=== PATIENT | female | born 1950 | race Caucasian/White ===

== ENCOUNTER 2020-05-28 09:13 | Outpatient (REF) | payer MEDICARE, OTHER, SELFPAY ==
[2020-05-28 11:28] LABS: Hemoglobin 13.1 g/dl (12.0-16.0); Mean Corpuscular HGB Conc 32.8 g/dl (31.0-35.0); Mean Corpuscular Hemoglobin 30.6 pg (27.0-33.0); Mean Corpuscular Volume 93.5 fL (80-98); Mean Platelet Volume 10.5 fL (9.4-12.3); Platelet Count 236 X10*3/uL (160-400); Red Blood Count 4.28 X10*6/uL (4.20-5.50); Red Cell Distribution Width 12.7 % (11.0-16.0); White Blood Count 7.1 X10*3/uL (4.8-10.8)
[2020-05-28 11:50] LABS: Alanine Aminotransferase 19 U/L (0-31); Albumin Level 4.3 g/dL (3.5-5.0); Alkaline Phosphatase 76 U/L (39-117); Anion Gap 13 (12-20); Aspartate Amino Transferase 23 U/L (5-31); Bilirubin Total 0.7 mg/dL (0.0-1.0); Blood Urea Nitrogen 19 mg/dL (9-16); Calcium 8.9 mg/dL (8.4-10.2); Carbon Dioxide 28 mmol/L (22-29); Chloride 105 mmol/L (96-108); Cholesterol 188 mg/dL; Estimated Glomerular Filt Rate > 60; Glucose Fasting 85 mg/dL (60-99); HDL Cholesterol 57 mg/dL; LDL Cholesterol Calculated 104 mg/dl; Potassium 4.5 mmol/l (3.3-5.1); Sodium 141 mmol/L (135-145); Total Protein 6.5 g/dL (6.5-8.0); Triglycerides 139 mg/dL
[2020-05-28 12:13] LABS: Thyroid Stimulating Hormone 1.34 mIU/mL (0.32-4.0)
== END 2020-05-28 09:14 | disposition home or self-care (01) ==
LOC: HO.HMGCLDS 09:13
PROVIDERS: PCP Internal Medicine; Visit Provider Internal Medicine
DX: U07.1 COVID-19 (principal); R06.00 Dyspnea, unspecified; I10 Essential (primary) hypertension; E78.5 Hyperlipidemia, unspecified
CPT/HCPCS: 36415; 80053; 80061; 84443; 85027

== ENCOUNTER → 2020-06-10 09:07 | Outpatient (REF) | payer MEDICARE, OTHER, SELFPAY ==
--- NOTE | 2020-06-10 09:12 | CA_ITS ---
Transthoracic Echocardiogram Patient (Last, First, Middle): Yvrose Ortega C Gender: Female Date of : 1950 Age: 69 Procedure Date: 06/10/2020 Procedure Type: Transthoracic Echocardiogram Location: OP Height: 157.48 cm Weight: 70.76 kg BSA: 1.72 m2 Heart Rate: bpm BP: 162 / 94 mmHg Director Of Community Education: Nichole MD: Cristela Barros MD Symptoms: U07.1 - COVID-19 Study Quality: Good ECG Rhythm: Sinus Conclusions: - The left ventricular systolic function is normal. The visually estimated ejection fraction is between 65-70%. - LV global endocardial peak longitudinal strain -17% (normal). - E/E prime ratio is >15, consistent with elevated filling pressures. Evidence suggests grade I (mild) diastolic dysfunction. - There is mild calcification of the aortic valve. - No obvious valvular pathology seen on this study. Findings Left Ventricle Normal left ventricular cavity size. The left ventricular systolic function is normal. The visually estimated ejection fraction is between 65-70%. There is no evidence of regional wall motion abnormalities. E/E prime ratio is >15, consistent with elevated filling pressures. Evidence suggests grade I (mild) diastolic dysfunction. LV global endocardial peak longitudinal strain -17%. Right Ventricle Normal right ventricular cavity size and systolic function. Atria The left atrium is mildly dilated. The right atrium is normal in size. Aortic Valve There is a normal trileaflet aortic valve. There is mild calcification of the aortic valve. There is no aortic valve stenosis. Mitral Valve The mitral valve appears normal. There is trace mitral valve regurgitation. There is no mitral valve stenosis. Pulmonic Valve The pulmonic valve was not well visualized. Tricuspid Valve Normal tricuspid valve structure. There is trace tricuspid valve regurgitation. The pulmonary artery systolic pressure is normal. Great Vessels The aortic annulus, sinuses of valsalva, and asc aorta are normal in size. Venous The inferior vena cava is normal in size and collapses greater than 50% with inspiration. Pericardium/Pleural There is no evidence of pericardial effusion. Prior Study Comparison No prior study available for comparison. Recommendations, Care & Conclusions No obvious valvular pathology seen on this study. Measurements 2D Linear Measurements RVIDd: 2.79 RVIDd Index: 1.62 IVSd: 1.03 0.6-0.9/0.6-1.0 cm LVIDd: 4.40 3.9-5.3/4.2-5.9 cm LVIDd Index: 2.56 2.4-3.2/2.2-3.1 cm/m2 LVIDs: 3.12 2.0-3.6 cm LVPWd: 0.99 0.7-1.1 cm Ao Root: 2.80 2.1-3.5 cm LA Diam: 4.30 2.7-3.8/3.0-4.0 cm LAIDs Index: 2.50 1.5-2.3 cm/m2 LV Mass: 186.35 67-162/88-224 g LV Mass Index: 108.34 43-95/49-115 g/m2 LVOT Diam: 2.10 3.0+(-)1.3 cm 2D Systolic Function EF 4C: 73.20 >55% EF 2C: 69.60 >55% EF BiP: 70.20 >55% Mitral Valve MV Pk E: 0.96 MV PK A: 0.78 MV Decel Time: 262.00 E/A: 1.20 E'Lateral: 4.46 E'Medial: 5.11 E/E' Med: 18.80 E/E' Lat: 21.50 Aortic Valve AoV Pk Papi: 1.45 AoV Mn Papi: 1.10 AoV VTI: 0.35 AoV Pk Grad: 8.00 Aov Mn Grad: 5.00 NESTOR Cont.VTI: 3.20 LVOT LVOT Pk Papi: 1.32 LVOT Mn Papi: 0.94 LVOT VTI: 0.32 LVOT Pk Grad: 7.00 LVOT Mn Grad: 4.00 LVOT Diam: 2.10 LVOT Area: 3.46 Diastolic Function MV Pk E: 0.96 MV Pk A: 0.78 E/A: 1.20 E'Medial: 5.11 E/E' Med: 18.80 E' Laterial: 4.46 E/E' Lat: 21.50 Tricuspid Valve RA Press: 3.00 Great Vessels Aorta Ao Root-2D: 2.80 2.0-3.7 cm Ao Asc: 2.80 2.1-3.4 cm Ao Arch: 3.00 Updated in Other Vendor System with Status of Final Jonathon Joshua MD electronically signed on 06/11/2020 8:32:36 AM with status of Final
== END ==
LOC: HO.CARD 09:07
PROVIDERS: PCP Internal Medicine; Visit Provider Internal Medicine
DX: E78.5 Hyperlipidemia, unspecified (principal); I10 Essential (primary) hypertension; R06.00 Dyspnea, unspecified
CPT/HCPCS: 93306; 93356

== ENCOUNTER 2021-07-17 11:15 | Outpatient (REF) | payer MEDICARE, OTHER, SELFPAY | END 2021-07-17 11:16 | disposition home or self-care (01) | LOC: HO.HMGCLDS 11:15 | PROVIDERS: Visit Provider Internal Medicine | DX: Z20.822 Contact with and (suspected) exposure to COVID-19 (principal) | CPT/HCPCS: C9803; U0003; U0005 ==

== ENCOUNTER 2021-10-30 09:21 | Outpatient (REF) | payer MEDICARE, OTHER, SELFPAY ==
[2021-10-30 11:31] LABS: Appearance Urine TURBID; Color Urine YELLOW; Glucose Urine UA NEG (NEG); Hematocrit 41.6 % (37.0-47.0); Hemoglobin 13.6 g/dl (12.0-16.0); Leukocyte Esterase Urine NEG (NEG); Mean Corpuscular HGB Conc 32.7 g/dl (31.0-35.0); Mean Corpuscular Hemoglobin 30.3 pg (27.0-33.0); Mean Corpuscular Volume 92.7 fL (80.0-98.0); Mean Platelet Volume 10.2 fL (9.4-12.3); Nitrite Urine NEG (NEG); Platelet Count 269 X10*3/uL (160-400); Red Blood Count 4.49 X10*6/uL (4.20-5.50); Red Cell Distribution Width 12.3 % (11.0-16.0); Specific Gravity - Urine >= 1.030 (1.005-1.025); Urine Blood NEG (NEG); Urine Ketones NEG (NEG); Urine Protein NEG (NEG-TRACE); White Blood Count 6.5 X10*3/uL (4.8-10.8)
[2021-10-30 12:07] LABS: Amorphous Sediment Urine 4+ /LPF
[2021-10-30 12:08] LABS: Mucus Urine 1+ /LPF; Squamous Epithelial Cell Urine TRACE /LPF
[2021-10-30 12:09] LABS: RBC Urine 0 /HPF (0); WBC Urine 0-2 /HPF (0-4)
[2021-10-30 12:13] LABS: TSH reflex Free T4 0.78 uIU/mL (0.32-4.0); Vitamin D 25-OH Total 38.7 ng/mL (>30)
[2021-10-30 12:23] LABS: Alanine Aminotransferase 23 U/L (0-31); Albumin Level 4.4 g/dL (3.5-5.0); Alkaline Phosphatase 72 U/L (39-117); Anion Gap 12 (12-20); Aspartate Amino Transferase 25 U/L (5-31); Bilirubin Total 0.8 mg/dL (0.0-1.0); Blood Urea Nitrogen 15 mg/dL (9-16); Calcium 9.2 mg/dL (8.4-10.2); Carbon Dioxide 26 mmol/L (22-29); Chloride 106 mmol/L (96-108); Cholesterol 208 mg/dL; Estimated Glomerular Filt Rate > 60; Glucose Fasting 98 mg/dL (60-99); HDL Cholesterol 54 mg/dL; LDL Cholesterol Calculated 127 mg/dl; Potassium 4.3 mmol/L (3.3-5.1); Sodium 140 mmol/L (135-145); Triglycerides 137 mg/dL
== END 2021-10-30 09:22 | disposition home or self-care (01) ==
LOC: HO.HMGCLDS 09:21
PROVIDERS: PCP Internal Medicine; Visit Provider Internal Medicine
DX: R00.1 Bradycardia, unspecified (principal)
CPT/HCPCS: 36415; 80053; 80061; 81001; 82306; 84443; 85027

== ENCOUNTER 2022-11-18 12:26 | Outpatient (REF) | payer MEDICARE, OTHER, SELFPAY ==
[2022-11-18 13:53] LABS: MANUAL DIFF FLAG NO
[2022-11-18 14:05] LABS: Basophils Percent Auto 0.4 % (0-2); Eosinophils Absolute Auto 0.1 X10*3/uL (0.0-0.4); Eosinophils Percent Auto 0.8 % (0-4); Hematocrit 39.6 % (37.0-47.0); Hemoglobin 13.1 g/dl (12.0-16.0); Imm Gran Abs Auto 0.02 X10*3/uL (0.00-0.03); Imm Gran Pct Auto 0.3 % (0.0-0.4); Lymphocytes Absolute Auto 3.2 X10*3/uL (1.2-4.9); Lymphocytes Percent Auto 41.2 % (20-40); Mean Corpuscular HGB Conc 33.1 g/dl (31.0-35.0); Mean Corpuscular Volume 90.8 fL (80.0-98.0); Mean Platelet Volume 10.1 fL (9.4-12.3); Monocytes Absolute Auto 0.6 X10*3/uL (0.1-1.2); Monocytes Percent Auto 7.5 % (2-11); Neutrophils Absolute Auto 3.9 x10*3/uL (2.0-8.3); Neutrophils Percent Auto 49.8 % (45-73); Platelet Count 262 X10*3/uL (160-400); Red Blood Count 4.36 X10*6/uL (4.20-5.50); White Blood Count 7.8 X10*3/uL (4.8-10.8)
[2022-11-18 14:24] LABS: Alanine Aminotransferase 15 U/L (0-31); Albumin Level 4.4 g/dL (3.5-5.0); Alkaline Phosphatase 70 U/L (39-117); Anion Gap 12 (12-20); Aspartate Amino Transferase 19 U/L (5-31); Bilirubin Total 0.7 mg/dL (0.0-1.0); Blood Urea Nitrogen 15 mg/dL (9-16); Calcium 9.1 mg/dL (8.4-10.2); Carbon Dioxide 25 mmol/L (22-29); Chloride 106 mmol/L (96-108); Cholesterol 208 mg/dL; Estimated Glomerular Filt Rate > 60; Glucose Fasting 91 mg/dL (60-99); HDL Cholesterol 67 mg/dL; LDL Cholesterol Calculated 121 mg/dl; Potassium 4.3 mmol/L (3.3-5.1); Sodium 139 mmol/L (135-145); Total Protein 6.6 g/dL (6.5-8.0); Triglycerides 103 mg/dL
[2022-11-18 14:43] LABS: TSH reflex Free T4 0.79 uIU/mL (0.32-4.0); Vitamin D 25-OH Total 51.2 ng/mL (>30)
== END 2022-11-18 12:27 | disposition home or self-care (01) ==
LOC: HO.HMGCLDS 12:26
PROVIDERS: PCP Internal Medicine; Visit Provider Internal Medicine
DX: I10 Essential (primary) hypertension (principal); E78.5 Hyperlipidemia, unspecified; E55.9 Vitamin D deficiency, unspecified
CPT/HCPCS: 36415; 80053; 80061; 82306; 84443; 85025

== ENCOUNTER 2023-05-18 09:58 | Outpatient (AMB) | payer MEDICARE, OTHER, SELFPAY ==
[2023-05-18 10:02] VITALS: BP 120/74; PULSE 51; O2SAT 98; BMI 26.5
--- NOTE | 2023-05-18 10:02 | MHC.PC.OV ---
Vital Signs 05/18/23 10:02 Height 5 ft 2 in Weight 145 lb BMI 26.5 BP 120/74 Blood Pressure Location Lt brachial Position Sitting Pulse 51 Pulse Source Pulse Oximeter Pulse Oximetry (%) 98 Oxygen Delivery Method Room Air Intake Visit Reasons: 6 month follow up HLD Intake Note: Pt is here today for 6 months follow up visit. Allergies lisinopril Adverse Reaction (Intermediate, Verified 05/18/23 10:08) cough, hair falling out SEASONAL ALLERGIES Allergy (Unknown, Uncoded 05/18/23 10:08) SNEEZING, RUNNY EYES Medication List - Last Reconciled 05/18/23 by Cristela Barros MD amlodipine 5 mg PO DAILY amoxicillin 2,000 mg (4 x 500 mg) PO ONCE atenolol 25 mg PO DAILY calcium carbonate-vitamin D3 600 mg-12.5 mcg (500 unit) (Calcium 600 with Vitamin D3) caps PO denosumab (Prolia) 60 mg subcut [id number] esomeprazole magnesium (Nexium) 40 mg PO DAILY flu vac 2020 [id number](PF) 60 mcg (15 mcg x 4)/0.5 mL mL IM ONCE fluoxetine 20 mg PO DAILY olmesartan 20 mg PO DAILY simvastatin 20 mg PO DAILY Tobacco use date assessed: 05/18/23 Dental Screening Dental Screen Date: 05/18/23 Did you have a dental visit in the last 12 months?: Yes Did you have a dental problem in the last 6 months where you did not have access to dental care?: No Was dental information given to patient?: Patient has dentist HPI 6 month follow up HLD HPI Details PATIENT PRESENTS FOR THE FOLLOW-UP ON HYPERTENSION HYPERLIPIDEMIA STABLE ON CURRENT MEDICATIONS. She is grieving her who suddenly 8 months ago and patient is considering grieving counseling. She denies depression. [facility] Medical History (Updated 05/18/23 @ 10:48 by Cristela Barros MD) Bunion of great toe Bradycardia Trigeminal neuralgia Annual physical exam WEEKS (dyspnea on exertion) Normal Pap smear Mammogram normal Normal colonoscopy COVID-19 GERD (gastroesophageal reflux disease) HTN (hypertension) HLD (hyperlipidemia) Hiatal hernia Surgical History History of knee replacement Family History Father Heart attack Mother Dementia Social History Housing: House Patient Tobacco Use Status: Former Tobacco user (25 years ago) e-Cigarette/Vaping Use: Never Used Current occupational status: employed Cognitive needs: No Hearing needs: No Vision needs: Yes Questionnaire Thrive Questionnaire Date Thrive assessed: 11/18/22 TEGAN-7 AMB Questionnaire TEGAN-7 Date TEGAN - 7 assessed: 11/18/22 Source: Developed by Drs. Masoud Uribe, Rosa Ellis, Ezio Jewell and colleagues, with an educational lisa from [employer]. Review of Systems Const All systems reviewed & are unremarkable except as noted in HPI and below Reports no additional complaints Eyes Reports no additional complaints ENT Reports no additional complaints Card Reports no additional complaints Resp Reports no additional complaints GI Reports no additional complaints Reports no additional complaints Physical exam (Primary Care) Vital Signs: Last Vital Signs Pulse 51 05/18/23 10:02 BP 120/74 05/18/23 10:02 Pulse Ox 98 05/18/23 10:02 Oxygen Delivery Method Room Air 05/18/23 10:02 BMI result Body Mass Index 26.5 Tobacco/Smoking Status: Tobacco use Status Tobacco use date assessed 05/18/23 05/18/23 10:11 Patient Tobacco Use Status Former Tobacco user (05/18/23 10:02 years ago) e-Cigarette/Vaping Use Never Used 05/18/23 10:02 Thrive Assessment: Date of Thrive Assessment Date Thrive assessed 11/18/22 05/18/23 10:02 Const General: no acute distress HENMT Face and sinus: Yes normal facial exam Eyes General: appearance normal, both eyes and all related structures Neck Neck: Yes supple Resp Effort & Inspection: normal respiratory effort Auscultation: clear to auscultation bilaterally Cardio Rhythm: regular rhythm Heart sounds: S1 normal heart sound present and S2 normal heart sound present Assessment and Plan Assessment & Plan (1) HTN (hypertension): Code(s): I10 - Essential (primary) hypertension Plan: Continue medications (2) HLD (hyperlipidemia): Code(s): E78.5 - Hyperlipidemia, unspecified Plan: Continue statins, check lipid profile today, follow-up in 6 months with a fasting labs before (3) Osteoporosis: Comment: on Prolia since 2020 by fern cutter Code(s): M81.0 - Age-related osteoporosis without current pathological fracture (4) Grief: Code(s): F43.21 - Adjustment disorder with depressed mood Plan: Patient will schedule counseling Orders: Orders Lipid Panel Today E78.5 - Hyperlipidemia, unspecified, I10 - Essential (primary) hypertension Comprehensive [place]. Panel Fast 6 Months E78.5 - Hyperlipidemia, unspecified, I10 - Essential (primary) hypertension Vitamin D 25-OH (D2 and D3) 6 Months E78.5 - Hyperlipidemia, unspecified, I10 - Essential (primary) hypertension Comprehensive [place]. Panel Fast Today E78.5 - Hyperlipidemia, unspecified, I10 - Essential (primary) hypertension Lipid Panel 6 Months E78.5 - Hyperlipidemia, unspecified, I10 - Essential (primary) hypertension Complete Blood Count Auto Diff 6 Months E78.5 - Hyperlipidemia, unspecified, I10 - Essential (primary) hypertension Coding Level of Care Code Est Pt Level 4 (26901) Diagnoses HTN (hypertension) I10 HLD (hyperlipidemia) E78.5 Osteoporosis M81.0 Grief F43.21
== END 2023-05-18 10:49 | disposition home or self-care (01) ==
PROVIDERS: Visit Provider Internal Medicine
DX: I10 Essential (primary) hypertension (principal); E78.5 Hyperlipidemia, unspecified; M81.0 Age-related osteoporosis without current pathological fracture; F43.21 Adjustment disorder with depressed mood
CPT/HCPCS: 99214

== ENCOUNTER 2023-05-18 10:43 | Outpatient (REF) | payer MEDICARE, OTHER, SELFPAY | END 2023-05-18 10:44 | disposition home or self-care (01) | LOC: HO.HMGCLDS 10:43 | PROVIDERS: PCP Internal Medicine; Visit Provider Internal Medicine | DX: I10 Essential (primary) hypertension (principal); E78.5 Hyperlipidemia, unspecified | CPT/HCPCS: 36415; 80053; 80061 ==

== ENCOUNTER 2023-11-21 08:04 | Outpatient (REF) | payer MEDICARE, OTHER, SELFPAY ==
[2023-11-21 10:32] LABS: MANUAL DIFF FLAG NO
[2023-11-21 10:38] LABS: Basophils Percent Auto 0.3 % (0-2); Eosinophils Absolute Auto 0.1 X10*3/uL (0.0-0.4); Eosinophils Percent Auto 1.7 % (0-4); Hematocrit 39.4 % (37.0-47.0); Imm Gran Abs Auto 0.01 X10*3/uL (0.00-0.03); Imm Gran Pct Auto 0.2 % (0.0-0.4); Lymphocytes Absolute Auto 2.4 X10*3/uL (1.2-4.9); Mean Corpuscular Hemoglobin 30.7 pg (27.0-33.0); Mean Corpuscular Volume 93.1 fL (80.0-98.0); Mean Platelet Volume 10.4 fL (9.4-12.3); Monocytes Absolute Auto 0.3 X10*3/uL (0.1-1.2); Monocytes Percent Auto 5.3 % (2-11); Neutrophils Percent Auto 51.5 % (45-73); Platelet Count 230 X10*3/uL (160-400); Red Blood Count 4.23 X10*6/uL (4.20-5.50); Red Cell Distribution Width 13.1 % (11.0-16.0); White Blood Count 5.9 X10*3/uL (4.8-10.8)
[2023-11-21 10:55] LABS: Alanine Aminotransferase 17 U/L (0-31); Albumin Level 4.1 g/dL (3.5-5.0); Alkaline Phosphatase 61 U/L (39-117); Anion Gap 10 (12-20); Aspartate Amino Transferase 22 U/L (5-31); Bilirubin Total 0.6 mg/dL (0.0-1.0); Blood Urea Nitrogen 15 mg/dL (9-16); Calcium 8.7 mg/dL (8.4-10.2); Carbon Dioxide 26 mmol/L (22-29); Chloride 105 mmol/L (96-108); Cholesterol 192 mg/dL (<200); Estimated Glomerular Filt Rate > 60; Glucose Fasting 100 mg/dL (60-99); HDL Cholesterol 67 mg/dL (>40); LDL Cholesterol Calculated 104 mg/dL (<100); Sodium 137 mmol/L (135-145); Total Protein 6.9 g/dL (6.5-8.0); Triglycerides 105 mg/dL (<150)
[2023-11-24 14:08] LABS: Vitamin D 25-OH, D2 <4 ng/mL; Vitamin D 25-OH, D3 35 ng/mL; Vitamin D 25-OH, Total 35 ng/mL (30-100)
== END 2023-11-21 08:05 | disposition home or self-care (01) ==
LOC: HO.HMGCLDS 08:04
PROVIDERS: PCP Internal Medicine; Visit Provider Internal Medicine
DX: I10 Essential (primary) hypertension (principal); E78.5 Hyperlipidemia, unspecified
CPT/HCPCS: 36415; 80053; 80061; 82306; 85025

== ENCOUNTER 2023-11-23 09:59 | Outpatient (AMB) | payer MEDICARE, OTHER, SELFPAY ==
[2023-11-23 10:24] VITALS: BP 104/66; PULSE 55; O2SAT 97; BMI 26.9
--- NOTE | 2023-11-23 10:24 | A.OFFPC_ITS ---
Vital Signs 11/23/23 10:24 Height 5 ft 2 in Weight 147 lb BMI 26.9 BP 104/66 Blood Pressure Location Lt brachial Position Sitting Pulse 55 Pulse Source Pulse Oximeter Pulse Oximetry (%) 97 Oxygen Delivery Method Room Air Intake Visit Reasons: Adult Annual exam Intake Note: Pt is here today for PE. Allergies lisinopril Adverse Reaction (Intermediate, Verified 11/23/23 10:26) cough, hair falling out SEASONAL ALLERGIES Allergy (Unknown, Uncoded 11/23/23 10:26) SNEEZING, RUNNY EYES Tobacco use date assessed: 11/23/23 Fall risk assessment: 1 Fall in past year Last assessed Fall Risk: 11/23/23 Dental Screening Dental Screen Date: 11/23/23 Did you have a dental visit in the last 12 months?: Yes Did you have a dental problem in the last 6 months where you did not have access to dental care?: No Was dental information given to patient?: Patient has dentist HPI Adult Annual exam HPI Details Pt presents for PE. Pt is grieving her who a year and half. Patient denies depression. She is going on a trip to [place] next week. [facility] Medical History (Updated 11/23/23 @ 11:01 by Cristela Barros MD) Bunion of great toe Bradycardia Trigeminal neuralgia Annual physical exam WEEKS (dyspnea on exertion) Normal Pap smear Mammogram normal Normal colonoscopy COVID-19 GERD (gastroesophageal reflux disease) HTN (hypertension) HLD (hyperlipidemia) Hiatal hernia Surgical History S/P Mohs surgery for basal cell carcinoma History of knee replacement Family History Father Heart attack Mother Dementia Social History Housing: House Patient Tobacco Use Status: Former Tobacco user (25 years ago) e-Cigarette/Vaping Use: Never Used service: No Current occupational status: employed Cognitive needs: No Hearing needs: No Vision needs: Yes Questionnaire Thrive Questionnaire Date Thrive assessed: 11/18/22 AUDIT C Alcohol Use Questionnaire (AUDIT-C) 1. How often do you have a drink containing alcohol?: 2-3 times a week 2. How many drinks containing alcohol do you have on a typical day when you are drinking?: 1 or 2 3. How often do you have six or more drinks on one occasion?: Never Total Score: 3 TEGAN-7 AMB Questionnaire TEGAN-7 Date TEGAN - 7 assessed: 11/18/22 Source: Developed by Drs. Masoud Uribe, Rosa Ellis, Ezio Jewell and colleagues, with an educational lisa from [employer]. Review of Systems Const All systems reviewed & are unremarkable except as noted in HPI and below Reports no additional complaints Eyes Reports no additional complaints ENT Reports no additional complaints Card Reports no additional complaints Resp Reports no additional complaints GI Reports no additional complaints Reports no additional complaints Physical exam (Primary Care) Vital Signs: Last Vital Signs Pulse 55 11/23/23 10:24 BP 104/66 11/23/23 10:24 Pulse Ox 97 11/23/23 10:24 Oxygen Delivery Method Room Air 11/23/23 10:24 BMI result Body Mass Index 26.9 Tobacco/Smoking Status: Tobacco use Status Tobacco use date assessed 11/23/23 11/23/23 10:28 Patient Tobacco Use Status Former Tobacco user (25 11/23/23 10:28 years ago) e-Cigarette/Vaping Use Never Used 11/23/23 10:28 Thrive Assessment: Date of Thrive Assessment Date Thrive assessed 11/18/22 11/23/23 10:28 Const General: no acute distress HENMT Head: Yes normal to inspection Ears: hearing grossly normal bilaterally Mouth: Normal oral and palatal mucosa present Teeth and gingiva: dentition normal Eyes General: appearance normal, both eyes and all related structures Neck Neck: Yes no lymphadenopathy and Yes supple Resp Effort & Inspection: normal respiratory effort Auscultation: clear to auscultation bilaterally Cardio Rhythm: regular rhythm Heart sounds: S1 normal heart sound present and S2 normal heart sound present GI Inspection: Yes normal to inspection Palpation (GI): Soft to palpation Percussion: Yes normal to percussion Auscultation: normal bowel sounds Assessment and Plan Assessment & Plan (1) Osteoporosis: Comment: on Prolia since 2020 by curtains and draperies salesperson, DEXA by FARM MACHINERY MECHANIC 2022 Code(s): M81.0 - Age-related osteoporosis without current pathological fracture Plan: Continue vitamin-D regular exercise and follow-up with curtains and draperies salesperson for osteoporosis treatment (2) Normal colonoscopy: Comment: 2015 normal, Dr. Chaves (3) Annual physical exam: Code(s): Z00.00 - Encounter for general adult medical examination without abnormal findings Plan: Well-balanced diet regular exercise discussed with the patient, she is up-to-date with colonoscopy and mammogram (4) HTN (hypertension): Code(s): I10 - Essential (primary) hypertension Plan: Continue current medications Orders: Orders UA w Microscopic Today I10 - Essential (primary) hypertension, Z00.00 - Encounter for general adult medical examination without abnormal findings Coding Level of Care Code Est Pt Prev Care >65y(80472) Diagnoses Osteoporosis M81.0 Normal colonoscopy Annual physical exam Z00.00 HTN (hypertension) I10
== END 2023-11-23 11:13 | disposition home or self-care (01) ==
PROVIDERS: Visit Provider Internal Medicine
DX: Z00.00 Encounter for general adult medical examination without abnormal findings (principal); M81.0 Age-related osteoporosis without current pathological fracture; I10 Essential (primary) hypertension
CPT/HCPCS: 99397

== ENCOUNTER 2023-11-23 11:13 | Outpatient (REF) | payer MEDICARE, OTHER, SELFPAY ==
[2023-11-23 13:33] LABS: Appearance Urine Clear; Color Urine Yellow; Glucose Urine UA Negative (Negative); Leukocyte Esterase Urine Negative (Negative); Nitrite Urine Negative (Negative); PH 5.5 (5.0-9.0); Specific Gravity - Urine 1.025 (1.005-1.025); Urine Blood Negative (Negative); Urine Ketones Negative (Negative); Urine Protein Negative (Neg-Trace)
[2023-11-23 13:44] LABS: Bacteria Urine None Seen (None Seen); Hyaline Casts Urine 0-2 /LPF (0-2); RBC Urine 0-2 /HPF (0-2); Squamous Epithelial Cell Urine 0-2 /HPF (0-2); WBC Urine 0-5 /HPF (0-5)
== END 2023-11-23 11:14 | disposition home or self-care (01) ==
LOC: HO.HMGCLDS 11:13
PROVIDERS: PCP Internal Medicine; Visit Provider Internal Medicine
DX: Z00.00 Encounter for general adult medical examination without abnormal findings (principal); I10 Essential (primary) hypertension
CPT/HCPCS: 81001

== ENCOUNTER 2024-01-30 09:56 | Outpatient (AMB) | payer MEDICARE, OTHER, SELFPAY ==
[2024-01-30 09:58] VITALS: BP 130/80; PULSE 62; TEMP 36.7; O2SAT 96; BMI 27.0
--- NOTE | 2024-01-30 09:58 | AM.OFFWIN_ITS ---
Intake Vital Signs 3 01/30/24 09:58 Height 5 ft 2 in Weight 147 lb 8 oz BMI 27.0 BP 130/80 Blood Pressure Location Lt brachial Position Sitting Pulse 62 Pulse Source Pulse Oximeter Temp 98.1 F Temp Source Temporal Artery Scan Pulse Oximetry (%) 96 Oxygen Delivery Method Room Air Intake Visit Reasons: est/ left leg bite possible infection? Intake Note: Pt presents to the office today for c/o left leg bite with questioning possible infection. Pt states she noticed the bug bite Tuesday01/23/24. She states she has been putting hydrogen peroxide and neosporin but states now it is becoming painful and red. Patient Tobacco Use Status: Former Tobacco user (25 years ago) Allergies lisinopril Adverse Reaction (Intermediate, Verified 01/30/24 10:21) cough, hair falling out SEASONAL ALLERGIES Allergy (Unknown, Uncoded 01/30/24 10:03) SNEEZING, RUNNY EYES Medication List - Last Reconciled 01/30/24 by Cat Guzman, DESKIDDING MACHINE OPERATOR- amlodipine 5 mg PO DAILY amoxicillin 2,000 mg (4 x 500 mg) PO ONCE atenolol 25 mg PO DAILY calcium carbonate-vitamin D3 600 mg-12.5 mcg (500 unit) (Calcium 600 with Vitamin D3) caps PO denosumab (Prolia) 60 mg subcut [id number] esomeprazole magnesium (Nexium) 40 mg PO DAILY fluoxetine 20 mg PO DAILY olmesartan 20 mg PO DAILY simvastatin 20 mg PO DAILY HPI HPI Comments 2 History of Present Illness0 Details insect bite LLE occurred 1 week ago this happened while cleaning a camper did not see the insect or remove any insect - thinks it was a spider? area was itchy initially but this is now improved s/p applying TAB and h202 w/o relief Now red and swollen adn hot to touch Tdap overdue willing to get today PFSH Medical History Bunion of great toe Bradycardia Trigeminal neuralgia Annual physical exam WEEKS (dyspnea on exertion) Normal Pap smear Mammogram normal Normal colonoscopy COVID-19 GERD (gastroesophageal reflux disease) HTN (hypertension) HLD (hyperlipidemia) Hiatal hernia Surgical History S/P Mohs surgery for basal cell carcinoma History of knee replacement Family History Father Heart attack Mother Dementia Social History Housing: House Patient Tobacco Use Status: Former Tobacco user (25 years ago) e-Cigarette/Vaping Use: Never Used service: No Current occupational status: employed Cognitive needs: No Hearing needs: No Vision needs: Yes Review of Systems Const All systems reviewed & are unremarkable except as noted in HPI and below Physical Exam Vital Signs: Last Vital Signs Temp 98.1 F 01/30/24 09:58 Pulse 62 01/30/24 09:58 BP 130/80 01/30/24 09:58 Pulse Ox 96 01/30/24 09:58 Oxygen Delivery Method Room Air 01/30/24 09:58 BMI result Body Mass Index 27.0 Extrem Upper/lower leg/hip images: 2 1. LLE erythematous plaque with scabbed center, warm to touch periskin with localized edema. no drainage Assessment & Plan Assessment & Plan (1) Insect bite of left lower extremity: Code(s): S80.862A - Insect bite (nonvenomous), left lower leg, initial encounter; W57.XXXA - Bitten or stung by nonvenomous insect and other nonvenomous arthropods, initial encounter Qualifiers: Encounter type: initial encounter Qualified Code(s): S80.862A - Insect bite (nonvenomous), left lower leg, initial encounter; W57.XXXA - Bitten or stung by nonvenomous insect and other nonvenomous arthropods, initial encounter Plan: . (2) Cellulitis: Code(s): L03.90 - Cellulitis, unspecified Qualifiers: Laterality: left Site of cellulitis: extremity Site of cellulitis of extremity: lower extremity Qualified Code(s): L03.116 - Cellulitis of left lower limb Plan . Orders: Orders 2 TDaP Immunization Today Z23 - Encounter for immunization Medications: New 2 amoxicillin 500 mg PO BID 14 caps 0RF Patient Instructions: Apply hydrocort twice per day until better Use daily antihistamine (zyrtec) daily until resolved Take AB as directed tdap today If you develop fever, chills, worsening sx please return for re-eval. Coding Level of Care Code Est Pt Level 4 (55403) Diagnoses Insect bite of left lower extremity, initial encounter S80.862A; W57.XXXA Encounter type: initial encounter Cellulitis of left lower extremity L03.116 Laterality: left Site of cellulitis: extremity Site of cellulitis of extremity: lower extremity
== END 2024-01-30 10:37 | disposition home or self-care (01) ==
PROVIDERS: PCP Internal Medicine; Visit Provider Nurse Practitioner Family
DX: S80.862A Insect bite (nonvenomous), left lower leg, initial encounter (principal); W57.XXXA Bitten or stung by nonvenomous insect and other nonvenomous arthropods, initial encounter; L03.116 Cellulitis of left lower limb; Z23 Encounter for immunization
CPT/HCPCS: 90471; 90715; 99214

== ENCOUNTER 2024-07-16 14:02 | Outpatient (AMB) | payer MEDICARE, OTHER, SELFPAY ==
--- NOTE | 2024-07-16 14:23 | A.OFFPC_ITS ---
Vital Signs 07/16/24 14:26 Height 5 ft 2 in Weight 150 lb BMI 27.4 BP 108/66 Blood Pressure Location Rt brachial Position Sitting Pulse 68 Pulse Source Pulse Oximeter Pulse Oximetry (%) 96 Oxygen Delivery Method Room Air Intake Visit Reasons: [facility] [place] chest pain Intake Note: Pt is here today for ER follow up visit. Allergies lisinopril Adverse Reaction (Intermediate, Verified 07/16/24 14:28) cough, hair falling out SEASONAL ALLERGIES Allergy (Unknown, Uncoded 07/16/24 14:28) SNEEZING, RUNNY EYES Medication List - Last Reconciled 07/16/24 by Cristela Barros MD amlodipine 5 mg PO DAILY amoxicillin 2,000 mg (4 x 500 mg) PO ONCE amoxicillin 500 mg PO BID atenolol 25 mg PO DAILY calcium carbonate-vitamin D3 600 mg-12.5 mcg (500 unit) (Calcium with Vit D3) caps PO denosumab (Prolia) 60 mg subcut [id number] esomeprazole magnesium (Nexium) 40 mg PO DAILY fluoxetine 20 mg PO DAILY olmesartan 20 mg PO DAILY simvastatin 20 mg PO DAILY Tobacco use date assessed: 07/16/24 Dental Screening Dental Screen Date: 11/23/23 HPI [facility] [place] chest pain HPI Details Patient presents for the follow-up of ER visit for episode of chest pressure with left arm numbness and tingling sensation lasting for few minutes. Cardiac workup was negative. Patient reports recurrent episodes lasting for few minutes not related to physical activity usually at rest but also occasionally at night. He denies dysphagia odynophagia heartburn. Patient has been taking Nexium regularly. Hypertension hyperlipidemia controlled on current medications [facility] Medical History Bunion of great toe Bradycardia Trigeminal neuralgia Annual physical exam WEEKS (dyspnea on exertion) Normal Pap smear Mammogram normal Normal colonoscopy COVID-19 GERD (gastroesophageal reflux disease) HTN (hypertension) HLD (hyperlipidemia) Hiatal hernia Surgical History S/P Mohs surgery for basal cell carcinoma History of knee replacement Family History Father Heart attack Mother Dementia Social History Housing: House Patient Tobacco Use Status: Former Tobacco user (25 years ago) e-Cigarette/Vaping Use: Never Used service: No Current occupational status: employed Cognitive needs: No Hearing needs: No Vision needs: Yes Questionnaire PHQ-9 Over the last 2 weeks, how often have you been bothered by any of the following problems? 1. Little interest or pleasure in doing things: nearly every day 2. Feeling down, depressed, or hopeless: several days 3. Trouble falling or staying asleep, or sleeping too much: not at all 4. Feeling tired or having little energy: not at all 5. Poor appetite or overeating: several days 6. Feeling bad about yourself - or that you are a failure or have let yourself or your family down: not at all 7. Trouble concentrating on things, such as reading the newspaper or watching television: several days 8. Moving or speaking so slowly that other people could have noticed. Or the opposite - being so fidgety or restless that you have been moving around a lot more than usual: not at all 9. Thoughts that you would be better off or of hurting yourself in some way: not at all Total score: 6 Depression Screening Interpretation: Negative Depression Screening Done: Yes 99118 - PHQ-9 Billing: Yes Source: Developed by Drs. Masoud Uribe, Rosa Ellis, Ezio Jewell and colleagues, with an educational lisa from [employer]. Thrive Questionnaire Date Thrive assessed: 07/16/24 I am a: Patient What is your living situation today?: I have a steady place to live Within the past 12 months, did the food you bought not last and you didn't have the money to get more?: Never true Within the past 12 months, did you worry whether your food would run out before you got money to buy more?: Never true Do you have trouble paying for medicines?: No Do you have trouble getting transportation to medical appointments?: No Do you have trouble paying your heating and electricity bill?: No Do you have trouble taking care of your child, family member or friend?: No Do you have trouble with day-to-day activities such as bathing, preparing meals, shopping, managing finances, etc.?: No Are you currently unemployed and looking for a job?: No Are you interested in more education?: No Please select the resources that you would like help with: None THRIVE Score: 0 AUDIT C Alcohol Use Questionnaire (AUDIT-C) 2. How many drinks containing alcohol do you have on a typical day when you are drinking?: 1 or 2 3. How often do you have six or more drinks on one occasion?: Never Total Score: 0 TEGAN-7 AMB Questionnaire TEGAN-7 Date TEGAN - 7 assessed: 07/16/24 Feeling nervous, anxious, or on edge: 0 = Not at all Not being able to stop or control worryin = Not at all Worrying too much about different things: 0 = Not at all Trouble relaxin = Not at all Being so restless that it is hard to sit still: 0 = Not at all Becoming easily annoyed or irritable: 0 = Not at all Feeling afraid as if something awful might happen: 0 = Not at all Total TEGAN-7 score (0-4 normal; 5-9 mild; 10-14 moderate; 15-21 severe): 0 Source: Developed by Drs. Masoud Uribe, Rosa Ellis, Ezio Jewell and colleagues, with an educational lisa from [employer]. TEGAN-7 Assessment Billing TEGAN-7 Assessment Tool: TEGAN-7 Assessment 22048 Review of Systems Const All systems reviewed & are unremarkable except as noted in HPI and below Card Reports no additional complaints Resp Reports no additional complaints GI Reports no additional complaints Reports no additional complaints Physical exam (Primary Care) Vital Signs: Last Vital Signs Pulse 68 07/16/24 14:26 BP 108/66 07/16/24 14:26 Pulse Ox 96 07/16/24 14:26 Oxygen Delivery Method Room Air 07/16/24 14:26 BMI result Body Mass Index 27.4 Tobacco/Smoking Status: Tobacco use Status Tobacco use date assessed 07/16/24 07/16/24 14:30 Patient Tobacco Use Status Former Tobacco user (25 07/16/24 14:23 years ago) e-Cigarette/Vaping Use Never Used 07/16/24 14:23 PHQ-9: PHQ-9 Score PHQ-9: Total score 6 07/16/24 14:30 Depression Screening Interpretation: Negative Thrive Assessment: Date of Thrive Assessment Date Thrive assessed 07/16/24 07/16/24 14:30 Const General: no acute distress HENMT Face and sinus: Yes normal facial exam Resp Effort & Inspection: normal respiratory effort Auscultation: clear to auscultation bilaterally Cardio Rhythm: regular rhythm Heart sounds: S1 normal heart sound present and S2 normal heart sound present Coding Level of Care Code Est Pt Level 4 (94909) Diagnoses Angina at rest I20.89 HTN (hypertension) I10 HLD (hyperlipidemia) E78.5 GERD (gastroesophageal reflux disease) K21.9 Additional Codes TEGAN-7 Assessment Billing - TEGAN-7 Assessment Tool: TEGAN-7 Assessment 86805 ([id number]) PHQ-9 - 34838 - PHQ-9 Billing: Yes ([id number]) Assessment & Plan Assessment & Plan (1) Angina at rest: Code(s): I20.89 - Other forms of angina pectoris Category: Medical Plan: The patient will be referred for nuclear stress test to rule out ischemia (2) HTN (hypertension): Code(s): I10 - Essential (primary) hypertension Category: Medical Plan: Continue current medications (3) HLD (hyperlipidemia): Code(s): E78.5 - Hyperlipidemia, unspecified Category: Medical Plan: Continue statin (4) GERD (gastroesophageal reflux disease): Code(s): K21.9 - Gastro-esophageal reflux disease without esophagitis Category: Medical Plan: Anti GERD diet and continue Nexium Orders: Orders Complete Blood Count Auto Diff 5 Months I10 - Essential (primary) hypertension, Z00.00 - Encounter for general adult medical examination without abnormal findings CA stress test Today I20.89 - Other forms of angina pectoris NM cardiolite stress test Today I20.89 - Other forms of angina pectoris Comprehensive [place]. Panel Fast 5 Months I10 - Essential (primary) hypertension, Z00.00 - Encounter for general adult medical examination without abnormal findings Lipid Panel 5 Months I10 - Essential (primary) hypertension, Z00.00 - Encounter for general adult medical examination without abnormal findings TSH reflex Free T4 5 Months I10 - Essential (primary) hypertension, Z00.00 - Encounter for general adult medical examination without abnormal findings Vitamin D 25-OH Total 5 Months I10 - Essential (primary) hypertension, Z00.00 - Encounter for general adult medical examination without abnormal findings
[2024-07-16 14:26] VITALS: BP 108/66; PULSE 68; O2SAT 96; BMI 27.4
== END 2024-07-16 15:13 | disposition home or self-care (01) ==
PROVIDERS: PCP Internal Medicine; Visit Provider Internal Medicine
DX: I20.89 Other forms of angina pectoris (principal); I10 Essential (primary) hypertension; E78.5 Hyperlipidemia, unspecified; K21.9 Gastro-esophageal reflux disease without esophagitis

== ENCOUNTER → 2024-07-16 14:02 | Outpatient (BNVA) | payer MEDICARE, OTHER, SELFPAY | PROVIDERS: PCP Internal Medicine; Visit Provider Internal Medicine | DX: I20.89 Other forms of angina pectoris (principal); I10 Essential (primary) hypertension; K21.9 Gastro-esophageal reflux disease without esophagitis; E78.5 Hyperlipidemia, unspecified | CPT/HCPCS: 96127; 99212 ==

== ENCOUNTER → 2024-07-24 08:43 | Outpatient (REF) | payer MEDICARE, OTHER, SELFPAY ==
--- NOTE | ~2024-07-24 | NM_ITS ---
Lexiscan Myocardial perfusion study Indication: Chest pain Technique: The patient was brought in for a Lexiscan perfusion study on 07/24/2024 and was injected 0.4 mg of Lexiscan intravenously. Within a minute of this injection 25 mCi of sestamibi was given intravenously. Images were obtained using the SPECT gamma camera interlaced with the gating device. Images were obtained in supine position. Resting perfusion study was performed on 07/25/2024. Patient was administered 25 mCi of sestamibi intravenously at rest. Images were then obtained in supine position. Total DLP 85 mGy-cm. Images were processed with the software and compared side to side in short axis, horizontal long axis and vertical long axis views. Findings: Raw aquisition reviewed. The stress perfusion study showed no significant perfusion defects. The gated study shows normal LV systolic function with calculated LVEF of 74%. LV cavity is normal in size. The gated study shows normal wall thickening and contraction of segments. Resting study shows no significant perfusion defects. Gating at rest reveals normal wall motion with ejection fraction at >70%. The findings are consistent with no clearly reversible or fixed perfusion defects. NM/NM cardiolite stress test Impression: 1. Myocardial perfusion imaging study shows normal myocardial perfusion. 2. Gated LVEF is > 70% during stress and rest. 3. Transient ischemic dilatation not present. EKG component of the test reported separately. Electronically signed by: Jonathon Joshua MD 07/26/2024 10:12 AM MARIELY
--- NOTE | 2024-07-24 08:45 | CA_ITS ---
Acquisition Time: 2024-07-24 09:18:31 Total Exercise Time: 00:06:36 Test Indications: CP Medications: SEE H Protocol: KAPIL Max HR: 110 BPM 74% of Pred: 147 BPM Max BP: 156/072 mmHG Max Work Load: 7.4 METS Exercis estress test with exercise 6 mins 36 secs of Kapil Protocol, acheiving 74% MPHR, rquesting to stop due to fatigue, without any anginal symptoms, without any arrythmias, with normotensive response to exercise. Nondiagnostic EKG for ischemia due to suboptimal MPHR. Test switched to Pharmacologic nuclear stress test. Pharmacologic Stress Test with Lexiscan while pt walks at 1 mph on treadmill, with reports oif lightheadedness, no chest discomfort, without any arrythmias, with normotensive response to injection. Nondiagnostic EKG for ischemia. In recovery, pt treated with IVP Aminophylline 75 mg to reverse Lexiscan, after which the lightheadedness resolved. Nuclear images pending. Test reviewed with Dr. Joshua. Test performed by Iesha Del Cid NP and Bacilio Real NP Referred By: Cristela Barros Overread By: IESHA DEL CID
== END ==
LOC: HO.CARD 08:43
PROVIDERS: PCP Internal Medicine; Visit Provider Internal Medicine
DX: I20.89 Other forms of angina pectoris (principal)
CPT/HCPCS: 78452; 93017; A9500; J0280; J2785

== ENCOUNTER → 2024-07-24 08:45 | Outpatient (BNV) | payer MEDICARE, OTHER, SELFPAY | PROVIDERS: PCP Internal Medicine; Visit Provider Nurse Practitioner Family | DX: R07.9 Chest pain, unspecified (principal) | CPT/HCPCS: 78452; 93016; 93018 ==

== ENCOUNTER 2024-11-06 09:07 | Outpatient (REF) | payer MEDICARE, OTHER, SELFPAY ==
--- OUTSIDE RECORDS SUMMARY | 2024-11-06 10:03 | XMS_ITS | Patient Health Record ---
Author Organization [facility] Address [address] [address] Care Team Providers Care Parts Control Clerk Name Role Phone Cristela Barros Primary Care Provider Unavailabl e Allergies Allergen (clinical drug ingredient) Drug/Non Drug Allergy documented on EMR Reaction Allergy Type Onset Date Status seasonal allergies (uncoded) sneezing, runny eyes Allergy Active lisinopril Lisinopril Unknown Drug Allergy Activ e Reason For Referral No Information Medications Medication SIG (Take, Route, Frequency, Duration) Notes Start Date End Date Status Gabapentin 100 MG 1 capsule Orally tid Not-Taking Naproxen 500 MG 1 tablet with food or milk as needed Orally Twice a day Not-Taking Fluoxetine 20 mg po daily Active NexIUM 40 MG 1 capsule Orally Once a day Active Atenolol 25 MG 1 tablet Orally Once a day Active amLODIPine Besylate 5 MG 1 tablet Orally Once a day Active Ibuprofen 600 MG TAKE 1 TABLET BY MOUTH WITH FOOD OR MILK NEEDED EVERY 6 HOURS for 30 Not-Taking Acetaminophen 500 MG 1 tablet as needed Orally every 4 hrs for 30 days 11/09/2021 Not-Taking hydrOXYzine HCl 25 MG 1 tablet as needed Orally every 8 hrs PRN itching/nausea for 10 days 11/09/2021 Not-Taking oxyCODONE HCl 5 MG 1 tablet as needed Orally every 4 hrs for 5 days 11/09/2021 Not-Taking Prolia 60 MG/ML as directed Subcutaneous every 6 months Active Multivitamin - 1 tablet Orally Once a day Active Calcium 1200+D3 Acti ve Simvastatin 20 MG 1 tablet in the evening Orally Once a day Active Olmesartan Medoxomil 20 MG 1 tablet Orally Once a day Active Problems Problem Type SNOMED Code ICD Code Onset Dates Problem Status W/U Status Risk Notes Problem [id number] Hallux valgus (acquired), right foot (M20.11) Active confirmed Problem [id number] 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) Active confirmed Problem [id number] Hammertoe of right foot (M20.41) Active confirmed Plan Of Treatment Pending Test Test Name Order Date X ray : Foot, right 3v 08/19/2021 X ray : Foot, right 3v 12/16/2021 X ray : Foot, right 3v 01/06/2022 X ray : Foot, right 3v 02/03/2022 X ray : Foot, right 3v 03/05/2022 Insurance Providers Payer Name Payer Address Payer Phone Subscriber Number Group Number Insured Name Patient Relationship to Insured Coverage Start Date Coverage End Date [employer] [place] [address] [place] [id number] Yvrose Wayne Self - patient is the insured [facility] [address] [facility] [address] [place] [address] [id number] Giorgi-Yvrose Meyer Self - patient is the insured Medical (General) History Medical History History ICD Code COVID-19 WEEKS (dyspnea on exertion) GERD (gastroesophageal reflux disease hiatal hernia HLD ( hyperlipidemia) HTN (hypertension) mammogram normal normal colonoscopy normal pap smear trigeminal neuralgia bilateral knee replacement Surgical History Surgery Date(Month/Year) right knee replacement 07/2011 left knee replacement 09/2011 Hospitalization History Reason Date(Month/Year) right knee replacement 07/2011 Covid-19 X 5 days 2019 left knee replacement 09/2011
--- OUTSIDE RECORDS SUMMARY | 2024-11-06 10:03 | XMS_ITS | Clinical Summary ---
Author Organization [facility] [address] [facility] Address [address] [place] [address] Phone Care Team Providers Care Foot Specialist Name Role Phone Cristela Barros MD Primary Care Provider [phone] Allergies Active Allergy Reactions Criticality Noted Date Comments Lisinopril 09/30/2024 Medications olmesartan (BENICAR) 20 mg tablet Take 1 tablet (20 mg total) by mouth 1 (one) time each day. 4 Active FLUoxetine (PROzac) 20 mg capsule Take 1 capsule (20 mg total) by mouth 1 (one) time each day. 4 Active simvastatin (ZOCOR) 20 mg tablet Take 1 tablet (20 mg total) by mouth 1 (one) time each day. 5 Active atenoloL (TENORMIN) 25 mg tablet Take 1 tablet (25 mg total) by mouth 1 (one) time each day. 5 Active amLODIPine (NORVASC) 5 mg tablet Take 1 tablet (5 mg total) by mouth 1 (one) time each day. 4 Active esomeprazole (NexIUM) [address] capsule Take 1 capsule (40 mg total) by mouth 1 (one) time each day. 5 Active Tyrvaya 0.03 mg/spray spray, metered, non-aerosol Administer 1 spray into each nostril 2 (two) times a day. 4 Active denosumab (Prolia) 60 mg/mL syringe syringe Inject 1 mL (60 mg total) under the skin 1 (one) time. Active polyethylene glycol (Golytely) 236-22.74-6.74 -5.86 gram solution Take 4L by mouth once for one dose. May substitue any PEG. Starting at 6PM the night before your procedure drink 1 8oz glasses at your own pace until you complete half of the gallon. Finish 2nd half of the gallon 5 hours before your procedure. 4000 mL Active Encounters Date Type Department Care Team Description 10/23/2024 Telephone Gastroenterology - [address] [phone] Cristela Chaves MD 10/22/2024 Telephone Gastroenterology - [address] [phone] Faith Bello [place] 10/17/2024 8:17 AM EDT - 10/17/2024 11:59 PM EDT Hospital Encounter [facility] Xray [address] [place] [phone] Large hiatal hernia Discharge Disposition: Home or Self Care 10/02/2024 9:00 AM EST Office Visit Gastroenterology - [address] [phone] Cristela Chaves MD Large hiatal hernia (Primary Dx); Diarrhea, unspecified type from Last 3 Months Surgical History Surgery Date Site/Laterality Comments TOTAL KNEE ARTHROPLASTY COLONOSCOPY 06/09/2016 Dr. Javier miller ESOPHAGOGASTRODUODENOSCOPY 10/08/2020 Ana miller stomahc and esophagus bx Medical History Medical History Date Comments HTN (hypertension) Hyperlipidemia GERD (gastroesophageal reflux disease) Seasonal allergies Trigeminal neuralgia Family History Medical History Relation Name Comments Coronary artery disease Father Dementia Mother Colon cancer Neg Hx Colon polyps Neg Hx Relation Name Status Comments Father Mother Social History Tobacco Use Types Packs/Day Years Used Date Smoking Tobacco: Former Cigarettes Tobacco Cessation:Counseling Given: Not Answered Alcohol Use Standard Drinks/Week Comments Yes 0 (1 standard drink = 0.6 oz pur e alcohol) Comments Unknown Sex and Gender Information Value Date Recorded Sex Assigned at Female 10/02/2024 10:32 AM EST Legal Sex Female 6:17 AM EST Gender Identity Female 10/02/2024 10:32 AM EST Sexual Orientation Straight 10/02/2024 10 :32 AM EST Occupation Industry Job Start Date Job End Date retired Not on file Not on file Not on file Obstetrics History Last Filed Vital Signs Vital Sign Reading Time Taken Comments Blood Pressure - - Pulse - - Temperature - - Respiratory Rate - - Oxygen Saturation - - Inhaled Oxygen Concentration - - Weight 67.6 kg (149 lb) 10/02/2024 8:36 AM EST Height 157.5 cm (5' 2 ) 10/02/2024 8:36 AM EST Body Mass Index 27.25 10/02/2024 8:36 AM EST Plan of Treatment Health Maintenance Due Date Last Done Comments Breast Cancer Screening 1950 Pneumococcal Vaccine: 50+ Years (2 of 2 - PPSV23) 09/07/2019 09/07/2018 Cholesterol Screening (Lipid Panel) 08/09/2024 Colorectal Cancer Screening: Colonoscopy 08/09/2024 Depression Screening 08/09/2024 Falls Risk Assessment 08/09/2024 Hepatitis C Screening 08/09/2024 Medicare Annual Wellness Visit 08/09/2024 Osteoporosis Screening (Bone Density Screening) 08/09/2024 Social Influencers of Health Screening 08/09/2024 Hypertension/CHF/CAD Annual BMP Blood Test 10/17/2024 DTaP,Tdap,and Td Vaccines (3 - Td or Tdap) 01/29/2034 01/30/2024, 04/18/2013 Zoster Vaccines Completed 04/14/2023, 07/0 10/2022, 06/21/2011 RSV Immunization Patients 60+ Years Old Completed 07/11/2023 Influenza Vaccine Completed 05/01/2024, , 04/27/2021, Additional history exists COVID-19 Vaccine Completed 05/21/2024, 10/2023, 06/24/2022, Additional history exists HIB Vaccines Aged Out No longer eligi ble based on patient's age to complete this topic HPV Vaccines Aged Out No longer eligi ble based on patient's age to complete this topic Hepatitis A Vaccines Aged Out No long er eligible based on patient's age to complete this topic Hepatitis B Vaccines Aged Out No long er eligible based on patient's age to complete this topic IPV Vaccines Aged Out No longer eligi ble based on patient's age to complete this topic MMR Vaccines Aged Out No longer eligi ble based on patient's age to complete this topic Meningococcal ACWY Vaccine Aged Out N o longer eligible based on patient's age to complete this topic Meningococcal B Vacine Aged Out No lo nger eligible based on patient's age to complete this topic RSV Immunization Patients Under 20 months Aged Out No longer eligible based on patient's age to complete this topic Varicella Vaccines Aged Out No longer eligible based on patient's age to complete this topic Procedures Procedure Name Priority Date/Time Associated Diagnosis Comments XR UGI W AIR CONTRAST Routine 10/17/2024 9:47 AM EDT Large hiatal hernia from Last 3 Months Results * XR UGI w Air Contrast (10/17/2024 9:47 AM EDT) Anatomical Region Laterality Modality Body Radiographic Lucy ging 10/17/2024 9:57 AM EDT Impressions 10/17/2024 10:23 AM EDT 1. A very large hiatal hernia is present with both axial and paraesophageal features, containing an estimated 70% of the stomach. There is partial organoaxial volvulus without obstruction. Associated spontaneous gastroesophageal reflux occurred to the level of the upper esophagus. 2. There is is mild to moderate esophageal dysmotility. 3. A 1.9 x 1.3 cm lamellated oval calcification in the right mid abdomen likely represents a gallstone. Code 53277 The dose-area product for this procedure was 8.11 Gy*cm2. PQRI CPT II G9500 -------- FINAL REPORT -------- Dictated By: Real Hall Dictated Date: 10/17/2024 09:57 ET Assigned Physician: Real Hall Reviewed and Electronically Signed By: Real Hall Signed Date: 10/17/2024 10:23 ET Workstation ID: [id number] Transcribed By: Self Edit Transcribed Date: 10/17/2024 10:03 ET Narrative 10/17/2024 10:23 AM EDT HISTORY: The patient is a 74-year-old female with a known hiatal hernia, based on imaging performed at another facility per the patient. FINDINGS: Supine radiograph of the abdomen demonstrates degenerative changes and mild dextroscoliosis of the thoracolumbar spine. The bowel gas pattern is nonobstructive. There is a 1.9 x 1.3 cm lamellated oval calcification in the right mid abdomen, likely representing a gallstone. FINDINGS: Effervescent crystals were administered orally. Thick and thin barium was administered orally under fluoroscopic control. There is mild to moderate esophageal dysmotility as evidenced by decreased efficacy of the primary peristaltic stripping wave and slow transit of barium down the esophagus. There is no ulcer, stricture, or filling defect. The mucosal pattern is normal. There is a very large hiatal hernia demonstrating both axial and paraesophageal features. This contains an estimated 70% of the stomach. There appears to be partial organoaxial volvulus, without obstruction. A moderate amount of spontaneous gastroesophageal reflux occurred to level of the upper esophagus. No ulcer or filling defect is seen in the stomach. The duodenal bulb and sweep are of normal appearance, aside for abnormal positioning consequent to the hernia. Procedure Note Real Hall MD - 10/17/2024 HISTORY: The patient is a 74-year-old female with a known hiatal hernia,based on imaging performed at another facility per the patient. FINDINGS: Supine radiograph of the abdomen demonstrates degenerativechanges and mild dextroscoliosis of the thoracolumbar spine. The bowel gaspattern is nonobstructive. There is a 1.9 x 1.3 cm lamellated ovalcalcification in the right mid abdomen, likely representing a gallstone. FINDINGS: Effervescent crystals were administered orally. Thick and thinbarium was administered orally under fluoroscopic control. There is mildto moderate esophageal dysmotility as evidenced by decreased efficacy ofthe primary peristaltic stripping wave and slow transit of barium down theesophagus. There is no ulcer, stricture, or filling defect. The mucosalpattern is normal. There is a very large hiatal hernia demonstrating bothaxial and paraesophageal features. This contains an estimated 70% of thestomach. There appears to be partial organoaxial volvulus, withoutobstruction. A moderate amount of spontaneous gastroesophageal refluxoccurred to level of the upper esophagus. No ulcer or filling defect isseen in the stomach. The duodenal bulb and sweep are of normal appearance,aside for abnormal positioning consequent to the hernia. IMPRESSION: 1. A very large hiatal hernia is present with both axial andparaesophageal features, containing an estimated 70% of the stomach. Thereis partial organoaxial volvulus without obstruction. Associatedspontaneous gastroesophageal reflux occurred to the level of the upperesophagus. 2. There is is mild to moderate esophageal dysmotility. 3. A 1.9 x 1.3 cm lamellated oval calcification in the right mid abdomenlikely represents a gallstone. Code 80463 The dose-area product for this procedure was 8.11 Gy*cm2. PQRI CPT II G9500 -------- FINAL REPORT -------- Dictated By: Real Hall Dictated Date: 10/17/2024 09:57 ET Assigned Physician: Real Hall Reviewed and Electronically Signed By: Real Hall Signed Date: 10/17/2024 10:23 ET Workstation ID: [id number] Transcribed By: Self Edit Transcribed Date: 10/17/2024 10:03 ET Cristela Chaves MD IMG FLUOROSCOPY PROCEDURES Fin al Result from Last 3 Months Insurance MEDICARE [facility] Care Teams Foot Specialist Relationship Specialty Start Date End Date Cristela Barros MD [address] [place] [phone] PCP - General Internal Medicine 08/09/24
--- OUTSIDE RECORDS SUMMARY | 2024-11-06 10:03 | XMS_ITS | Encounter Summary ---
Author Organization [facility] Address [address] [place] [address] Care Team Providers Care Claims Counsel Name Role Phone Cristela Barros MD Primary Care Provider [phone] Encounter Details Date Type Department Care Team ([facility] st Contact Info) Description 10/23/2024 Telephone Gastroenterology - 299 [address] [place] [phone] Cristela Chaves MD [address] [place] [address] Social History Tobacco Use Types Packs/Day Years Used Date Smoking Tobacco: Former Cigarettes Alcohol Use Standard Drinks/Week Comments Yes 0 [...] file Not on file Not on file documented as of this encounter Ordered Prescriptions Prescription Sig Dispense Quantity Refills Last Filled Start Date End Date polyethylene glycol (Golytely) 236-22.74-6.74 -5.86 gram solution Take 4L by mouth once for one dose. May substitue any PEG. Starting at 6PM the night before your procedure drink 1 8oz glasses at your own pace until you complete half of the gallon. Finish 2nd half of the gallon 5 hours before your procedure. 4000 mL 11/06/2024 documented in this encounter Progress Notes * Meseret Beasley - 10/23/2024 4:09 PM EDT Pt calling to cancel procedure per Dr. Almanzar documented in this encounter Plan of Treatment Not on file documented as of this encounter Visit Diagnoses Not on filedocumented in this encounter Care Teams Claims Counsel Relationship Specialty Start Date End Date Cristela Barros MD [address] [place] [phone] PCP - General Internal Medicine 08/09/24 documented as of this encounter
[2024-11-06 11:17] LABS: MANUAL DIFF FLAG NO
[2024-11-06 11:30] LABS: Basophils Percent Auto 0.5 % (0-2); Eosinophils Absolute Auto 0.1 X10*3/uL (0.0-0.4); Eosinophils Percent Auto 1.6 % (0-4); Hematocrit 40.3 % (37.0-47.0); Hemoglobin 13.4 g/dl (12.0-16.0); Imm Gran Abs Auto 0.01 X10*3/uL (0.00-0.03); Imm Gran Pct Auto 0.2 % (0.0-0.4); Lymphocytes Absolute Auto 2.7 X10*3/uL (1.2-4.9); Lymphocytes Percent Auto 42.1 % (20-40); Mean Corpuscular HGB Conc 33.3 g/dl (31.0-35.0); Mean Corpuscular Hemoglobin 31.1 pg (27.0-33.0); Mean Corpuscular Volume 93.5 fL (80.0-98.0); Mean Platelet Volume 10.1 fL (9.4-12.3); Monocytes Absolute Auto 0.5 X10*3/uL (0.1-1.2); Neutrophils Absolute Auto 3.1 x10*3/uL (2.0-8.3); Neutrophils Percent Auto 48.6 % (45-73); Platelet Count 241 X10*3/uL (160-400); Red Blood Count 4.31 X10*6/uL (4.20-5.50); Red Cell Distribution Width 13.1 % (11.0-16.0); White Blood Count 6.4 X10*3/uL (4.8-10.8)
[2024-11-06 12:13] LABS: Alanine Aminotransferase 16 U/L (0-31); Albumin Level 4.4 g/dL (3.5-5.0); Alkaline Phosphatase 55 U/L (39-117); Anion Gap 7 (12-20); Aspartate Amino Transferase 22 U/L (5-31); Bilirubin Total 0.7 mg/dL (0.0-1.0); Blood Urea Nitrogen 22 mg/dL (9-16); Calcium 9.6 mg/dL (8.4-10.2); Carbon Dioxide 29 mmol/L (22-29); Chloride 108 mmol/L (96-108); Cholesterol 200 mg/dL (<200); Estimated Glomerular Filt Rate > 60; Glucose Fasting 89 mg/dL (60-99); HDL Cholesterol 67 mg/dL (>40); LDL Cholesterol Calculated 107 mg/dL (<100); Potassium 4.1 mmol/L (3.3-5.1); Sodium 140 mmol/L (135-145); TSH reflex Free T4 0.73 uIU/mL (0.32-4.0); Total Protein 6.9 g/dL (6.5-8.0); Triglycerides 132 mg/dL (<150); Vitamin D 25-OH Total 62.3 ng/mL (>30)
== END 2024-11-06 09:08 | disposition home or self-care (01) ==
LOC: HO.WFDLDS 09:07
PROVIDERS: Visit Provider Internal Medicine
DX: Z00.00 Encounter for general adult medical examination without abnormal findings (principal); I10 Essential (primary) hypertension
CPT/HCPCS: 36415; 80053; 80061; 82306; 84443; 85025

== ENCOUNTER 2025-01-02 13:44 | Outpatient (AMB) | payer MEDICARE, OTHER, SELFPAY ==
[2025-01-02 14:25] VITALS: BP 120/74; PULSE 63; RESP 18; TEMP 36.7; O2SAT 96; BMI 26.7
--- NOTE | 2025-01-02 14:25 | MHC.PC.OV ---
Vital Signs 01/02/25 14:25 Height 5 ft 2 in Weight 146 lb BMI 26.7 BP 120/74 Blood Pressure Location Lt brachial Position Sitting Respiration 18 Pulse 63 Pulse Source Pulse Oximeter Temp 98.1 F Temp Source Oral Pulse Oximetry (%) 96 Oxygen Delivery Method Room Air Intake Visit Reasons: PE Intake Note: Pt is here today for PE. Allergies lisinopril Adverse Reaction (Intermediate, Verified 01/02/25 14:30) cough, hair falling out SEASONAL ALLERGIES Allergy (Unknown, Uncoded 01/02/25 14:30) SNEEZING, RUNNY EYES Medication List - Last Reconciled 01/02/25 by Cristela Barros MD amlodipine 5 mg PO DAILY amoxicillin 2,000 mg (4 x 500 mg) PO ONCE atenolol 25 mg PO DAILY calcium carbonate-vitamin D3 600 mg-12.5 mcg (500 unit) (Calcium with Vit D3) caps PO celecoxib (Celebrex) 200 mg PO BID esomeprazole magnesium (Nexium) 40 mg PO DAILY fluoxetine 20 mg PO DAILY olmesartan 20 mg PO DAILY pantoprazole 40 mg PO DAILY simvastatin 20 mg PO DAILY Tobacco use date assessed: 01/02/25 Fall risk assessment: No Falls in past year Last assessed Fall Risk: 01/02/25 Dental Screening Dental Screen Date: 01/02/25 Did you have a dental visit in the last 12 months?: Yes Did you have a dental problem in the last 6 months where you did not have access to dental care?: No Was dental information given to patient?: Patient has dentist HPI PE HPI Details Patient presents for a physical. She had hiatal hernia repair surgery at [facility] last week. patient recovered well but had urinary retention after anesthesia. She reports increased urinary frequency but denies dysuria pelvic or abdominal pain fever chills. [facility] Medical History (Updated 01/02/25 @ 15:03 by Cristela Barros MD) Osteoporosis Bunion of great toe Bradycardia Trigeminal neuralgia Annual physical exam WEEKS (dyspnea on exertion) Normal Pap smear Mammogram normal Normal colonoscopy COVID-19 GERD (gastroesophageal reflux disease) HTN (hypertension) HLD (hyperlipidemia) Hiatal hernia Surgical History (Updated 01/02/25 @ 15:06 by Cristela Barros MD) S/P Mohs surgery for basal cell carcinoma History of knee replacement Family History Father Heart attack Mother Dementia Social History Housing: House Patient Tobacco Use Status: Former Tobacco user (25 years ago) e-Cigarette/Vaping Use: Never Used service: No Current occupational status: employed Cognitive needs: No Hearing needs: No Vision needs: Yes Questionnaire PHQ-9 Over the last 2 weeks, how often have you been bothered by any of the following problems? 1. Little interest or pleasure in doing things: not at all 2. Feeling down, depressed, or hopeless: not at all 3. Trouble falling or staying asleep, or sleeping too much: not at all 4. Feeling tired or having little energy: not at all 5. Poor appetite or overeating: not at all 6. Feeling bad about yourself - or that you are a failure or have let yourself or your family down: not at all 7. Trouble concentrating on things, such as reading the newspaper or watching television: not at all 8. Moving or speaking so slowly that other people could have noticed. Or the opposite - being so fidgety or restless that you have been moving around a lot more than usual: not at all 9. Thoughts that you would be better off or of hurting yourself in some way: not at all Total score: 0 Depression Screening Interpretation: Negative Depression Screening Done: Yes 11742 - PHQ-9 Billing: Yes Source: Developed by Drs. Masoud Uribe, Rosa Ellis, Ezio Jewell and colleagues, with an educational lisa from [employer]. Thrive Questionnaire Date Thrive assessed: 12/31/24 I am a: Patient What is your living situation today?: I have a steady place to live Within the past 12 months, did the food you bought not last and you didn't have the money to get more?: Never true Within the past 12 months, did you worry whether your food would run out before you got money to buy more?: Never true Do you have trouble paying for medicines?: No Do you have trouble getting transportation to medical appointments?: No Do you have trouble paying your heating and electricity bill?: No Do you have trouble taking care of your child, family member or friend?: No Do you have trouble with day-to-day activities such as bathing, preparing meals, shopping, managing finances, etc.?: No Are you currently unemployed and looking for a job?: No Are you interested in more education?: No Please select the resources that you would like help with: None Currently or been in a relationship where the following occur: No concerns reported THRIVE Score: 0 AUDIT C Alcohol Use Questionnaire (AUDIT-C) 1. How often do you have a drink containing alcohol?: 2-3 times a week 2. How many drinks containing alcohol do you have on a typical day when you are drinking?: 1 or 2 3. How often do you have six or more drinks on one occasion?: Never Total Score: 3 TEGAN-7 AMB Questionnaire TEGAN-7 Date TEGAN - 7 assessed: 07/16/24 Feeling nervous, anxious, or on edge: 0 = Not at all Not being able to stop or control worryin = Not at all Worrying too much about different things: 0 = Not at all Trouble relaxin = Not at all Being so restless that it is hard to sit still: 0 = Not at all Becoming easily annoyed or irritable: 0 = Not at all Feeling afraid as if something awful might happen: 1 = Several days Total TEGAN-7 score (0-4 normal; 5-9 mild; 10-14 moderate; 15-21 severe): 1 Source: Developed by Drs. Masoud Uribe, Rosa Ellis, Ezio Jewell and colleagues, with an educational lisa from [employer]. Review of Systems Const All systems reviewed & are unremarkable except as noted in HPI and below Eyes Reports no additional complaints ENT Reports no additional complaints Card Reports no additional complaints Resp Reports no additional complaints GI Reports no additional complaints Reports no additional complaints Physical exam (Primary Care) Vital Signs: Last Vital Signs Temp 98.1 F 01/02/25 14:25 Pulse 63 01/02/25 14:25 Resp 18 01/02/25 14:25 BP 120/74 01/02/25 14:25 Pulse Ox 96 01/02/25 14:25 Oxygen Delivery Method Room Air 01/02/25 14:25 BMI result Body Mass Index 26.7 Tobacco/Smoking Status: Tobacco use Status Tobacco use date assessed 01/02/25 01/02/25 14:35 Patient Tobacco Use Status Former Tobacco user (01/02/25 14:35 years ago) e-Cigarette/Vaping Use Never Used 01/02/25 14:35 PHQ-9: PHQ-9 Score PHQ-9: Total score 0 01/02/25 14:35 Depression Screening Interpretation: Negative Thrive Assessment: Date of Thrive Assessment Date Thrive assessed 12/31/24 01/02/25 14:35 Currently or been in a relationship where the following occur: No concerns reported Const General: no acute distress HENMT Head: Yes normal to inspection Ears: hearing grossly normal bilaterally Face and sinus: Yes normal facial exam Eyes General: appearance normal, both eyes and all related structures Neck Neck: Yes no lymphadenopathy and Yes supple Resp Effort & Inspection: normal respiratory effort Auscultation: clear to auscultation bilaterally Cardio Rhythm: regular rhythm Heart sounds: S1 normal heart sound present and S2 normal heart sound present GI Inspection: Yes normal to inspection Palpation (GI): Soft to palpation Percussion: Yes normal to percussion Auscultation: normal bowel sounds Extrem Other: Trace pitting edema bilaterally Coding Level of Care Code Est Pt Prev Care >65y(06528) Diagnoses Osteoporosis M81.0 Annual physical exam Z00.00 HTN (hypertension) I10 Normal colonoscopy Urinary retention R33.9 Additional Codes PHQ-9 - 94952 - PHQ-9 Billing: Yes ([id number]) Assessment & Plan Assessment & Plan (1) Osteoporosis: Comment: on Prolia since 2020 by loom fixer supervisor, DEXA by SUPERVISOR AIRPLANE FLIGHT ATTENDANT 2022, Code(s): M81.0 - Age-related osteoporosis without current pathological fracture Category: Medical Plan: Patient has not had an updated DEXA. Patient has been getting Prolia injections through echo vascular technologist but would like to stop the medication. She will obtain medical records from [facility] nurse charge rn and DEXA will be scheduled (2) Annual physical exam: Code(s): Z00.00 - Encounter for general adult medical examination without abnormal findings Category: Medical Plan: Well-balanced diet regular physical activity discussed with the patient (3) HTN (hypertension): Code(s): I10 - Essential (primary) hypertension Category: Medical Plan: Continue current medications (4) Normal colonoscopy: Comment: 2015 Dr. Anastacio barron Category: Medical Plan: Up-to-date with colonoscopy (5) Urinary retention: Code(s): R33.9 - Retention of urine, unspecified Category: Medical Plan: Check UA and bladder ultrasound Orders: Orders UA w Microscopic Today R33.9 - Retention of urine, unspecified XR DEXA axial skeleton Today M81.0 - Age-related osteoporosis without current pathological fracture US bladder Today R33.9 - Retention of urine, unspecified
--- OUTSIDE RECORDS SUMMARY | 2025-01-02 14:43 | XMS_ITS | Patient Health Record ---
Author Organization [facility] Address [address] 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
== END 2025-01-02 15:00 | disposition home or self-care (01) ==
LOC: HO.HMCC 13:45
PROVIDERS: PCP Internal Medicine; Visit Provider Internal Medicine
DX: Z00.00 Encounter for general adult medical examination without abnormal findings (principal); M81.0 Age-related osteoporosis without current pathological fracture; I10 Essential (primary) hypertension; R33.9 Retention of urine, unspecified

== ENCOUNTER → 2025-01-02 13:44 | Outpatient (BNVA) | payer MEDICARE, OTHER, SELFPAY | PROVIDERS: PCP Internal Medicine; Visit Provider Internal Medicine | DX: Z00.00 Encounter for general adult medical examination without abnormal findings (principal); M81.0 Age-related osteoporosis without current pathological fracture; I10 Essential (primary) hypertension; R33.9 Retention of urine, unspecified; E78.5 Hyperlipidemia, unspecified | CPT/HCPCS: 96127; 99397 ==

== ENCOUNTER 2025-02-06 13:12 | Outpatient (REF) | payer MEDICARE, OTHER, SELFPAY ==
--- NOTE | ~2025-02-06 | US_ITS ---
EXAMINATION: US BLADDER HISTORY: R33.9 - Retention of urine, unspecified COMPARISON: There are no prior studies available for comparison. FINDINGS: Sonographic examination of the urinary bladder was performed before and after voiding. Before voiding, the urinary bladder measured 5.0 x 7.0 x 8.5, for an estimated volume of 280 mL. After voiding, the urinary bladder measured 3.1 x 1.2 x 3.7, for an estimated volume of 7.2 mL. No intrinsic bladder abnormality is identified. Bilateral ureteral jets are identified. US/US bladder IMPRESSION: Unremarkable ultrasound of the urinary bladder. Post void bladder residual of 7.2 mL. Electronically signed by: Masoud Hernandez MD 02/06/2025 01:56 PM EDT
--- OUTSIDE RECORDS SUMMARY | 2025-02-06 13:48 | XMS_ITS | Patient Health Record ---
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 [address] [facility] [address] [place] [phone] [id number] Giorgi-Yvrose Meyer Self - patient is the [...]
--- OUTSIDE RECORDS SUMMARY | 2025-02-06 13:48 | XMS_ITS | Clinical Summary ---
Author Organization [facility] 299 [facility] Address [address] [place] [address] Phone Care Team Providers Care Business Services Assistant Name Role Phone Cristela Barros MD Primary Care Provider [phone] Allergies Active Allergy Reactions Criticality Noted Date [...] hours before your procedure. 4000 mL Active Surgical History Surgery Date Site/Laterality Comments TOTAL KNEE ARTHROPLASTY COLONOSCOPY 06/09/2016 Dr. Herrera - paul ESOPHAGOGASTRODUODENOSCOPY 10/08/2020 Steff- paul stomahc and esophagus bx Medical History Medical [...] 08/09/2024 Hypertension/CHF/CAD Annual BMP Blood Test 10/17/2024 COVID-19 Vaccine ( season) 2024 05/21/2024, 08/10/2023, 06/24/2022, Additional history exists DTaP,Tdap,and Td Vaccines (3 - Td or Tdap) 01/29/2034 01/30/2024, 04/18/2013 Zoster Vaccines Completed 04/14/2023, 0710/2022, 06/21/2011 RSV Immunization Adult Patients Completed 07/11/2023 Influenza Vaccine Completed 05/01/2024, , 04/27/2021, Additional history exists HIB Vaccines Aged Out [...] age to complete this topic Meningococcal B Vaccine Aged Out No l onger eligible based on patient's age to complete this topic RSV Immunization Patients Under 20 months Aged Out No longer eligible based on patient's age to complete this topic Varicella Vaccines Aged Out No longer eligible based on patient's age to complete this topic Insurance MEDICARE [facility] Care Teams Business Services Assistant Relationship Specialty Start Date End Date Cristela Barros MD [address] [place] [address] PCP - General Internal Medicine 08/09/24
== END 2025-02-06 13:13 | disposition home or self-care (01) ==
LOC: HO.US 13:12
PROVIDERS: PCP Internal Medicine; Visit Provider Internal Medicine
DX: R33.9 Retention of urine, unspecified (principal)
CPT/HCPCS: 76857

== ENCOUNTER → 2025-02-06 13:14 | Outpatient (BNV) | payer MEDICARE, OTHER, SELFPAY | PROVIDERS: PCP Internal Medicine; Visit Provider Radiology Diagnostic Radiology | DX: R33.9 Retention of urine, unspecified (principal) | CPT/HCPCS: 76857 ==

== ENCOUNTER 2025-02-21 08:34 | Outpatient (REF) | payer MEDICARE, OTHER, SELFPAY ==
--- NOTE | ~2025-02-21 | MM_ITS ---
EXAMINATION: DXA BONE DENSITY AXIAL HISTORY: M81.0 - Age-related osteoporosis without current pathological fracture TECHNIQUE: [employer] Dual energy absorptiometry (DEXA) of the lumbar spine, total left hip, and femoral neck was performed. COMPARISON: There are no prior studies for comparison. FINDINGS: The bone mineral density of the lumbar spine is 1.079 g/cm2, corresponding to a T-score of -1.0, and a Z-score of 0.7. This is indicative of normal bone mineral density. The bone mineral density of the left total hip is 0.959 g/cm2, corresponding to a T-score of -0.4, and a Z-score of 1.3. This is indicative of normal bone mineral density. The bone mineral density of the left femoral neck is 0.844 g/cm2, corresponding to a T-score of -1.4, and a Z-score of 0.5. This is indicative of osteopenia. MM/XR DEXA axial skeleton IMPRESSION: Based on bone mineral density, and according to World Health Organization (WHO) criteria, the diagnosis is consistent with osteopenia. Statistically, 68% of repeat scans fall within 1 SD (+/- 0.010 g/cm2 for AP spine L1-L4) and 1 SD (+/- 0.012 g/cm2 for femur total) FRAX is a trademark of the [employer] [place] for Metabolic Bone Disease, a World Health Organization (WHO) Collaborating Center. Electronically signed by: Masoud Hernandez MD 02/21/2025 09:45 AM EDT
--- OUTSIDE RECORDS SUMMARY | 2025-02-21 08:42 | XMS_ITS | Clinical Summary ---
Author Organization [facility] 299 [facility] Address [address] [place] [address] Phone Care Team Providers Care Show Worker Name Role Phone Cristela Barros MD Primary Care Provider [phone] Allergies Active Allergy Reactions Criticality Noted Date [...] 2024 05/21/2024, 08/10/2023, 06/24/2022, Additional history exists Influenza Vaccine (#1) 2025 , 05/05/2023, 04/27/2021, Additional history exists DTaP,Tdap,and Td Vaccines (3 - Td or Tdap) 01/29/2034 01/30/2024, 04/18/2013 Zoster Vaccines Completed 04/14/2023, 07/0 10/2022, 06/21/2011 RSV Immunization Adult Patients Completed 07/11/2023 HIB Vaccines Aged Out No longer eligi [...] age to complete this topic Insurance MEDICARE [facility] Care Teams Show Worker Relationship Specialty Start Date End Date Cristela Barros MD [address] [place] [phone] PCP - General Internal Medicine 08/09/24
--- OUTSIDE RECORDS SUMMARY | 2025-02-21 08:42 | XMS_ITS | Patient Health Record ---
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
== END 2025-02-21 08:35 | disposition home or self-care (01) ==
LOC: HO.MAMMO 08:34
PROVIDERS: PCP Internal Medicine; Visit Provider Internal Medicine
DX: M81.0 Age-related osteoporosis without current pathological fracture (principal)
CPT/HCPCS: 77080

== ENCOUNTER → 2025-02-21 09:15 | Outpatient (BNV) | payer MEDICARE, OTHER, SELFPAY | PROVIDERS: PCP Internal Medicine; Visit Provider Radiology Diagnostic Radiology | DX: E28.39 Other primary ovarian failure (principal) | CPT/HCPCS: 77080 ==

== ENCOUNTER 2025-03-05 11:35 | Outpatient (AMB) | payer MEDICARE, OTHER, SELFPAY ==
[2025-03-05 12:07] VITALS: BP 118/70; PULSE 64; RESP 18; TEMP 36.8; O2SAT 95; BMI 26.7
--- NOTE | 2025-03-05 12:07 | A.OFFPC_ITS ---
Vital Signs 03/05/25 12:07 Height 5 ft 2 in Weight 146 lb BMI 26.7 BP 118/70 Blood Pressure Location Lt brachial Position Sitting Respiration 18 Pulse 64 Pulse Source Pulse Oximeter Temp 98.3 F Temp Source Oral Pulse Oximetry (%) 95 Oxygen Delivery Method Room Air Intake Visit Reasons: 2m follow up Intake Note: Pt is here today for 2 months follow up visit. Allergies lisinopril Adverse Reaction (Intermediate, Verified 03/05/25 12:10) cough, hair falling out SEASONAL ALLERGIES Allergy (Unknown, Uncoded 03/05/25 12:10) SNEEZING, RUNNY EYES Medication List - Last Reconciled 03/05/25 by Cristela Barros MD amlodipine 5 mg PO DAILY amoxicillin 2,000 mg (4 x 500 mg) PO ONCE atenolol 25 mg PO DAILY calcium carbonate-vitamin D3 600 mg-12.5 mcg (500 unit) (Calcium with Vit D3) caps PO fluoxetine 20 mg PO DAILY olmesartan 20 mg PO DAILY pantoprazole 40 mg PO DAILY simvastatin 20 mg PO DAILY Tobacco use date assessed: 03/05/25 Fall risk assessment: No Falls in past year Last assessed Fall Risk: 03/05/25 Dental Screening Dental Screen Date: 01/02/25 HPI 2m follow up HPI Details Patient presents for the follow-up on hypertension hyperlipidemia chron ic anxiety stable on current medications. Patient underwent laparoscopic paraesophageal hiatal hernia repair at [facility] and recovered well. She is going to [facility] in [place] in April. [facility] Medical History Osteoporosis Bunion of great toe Bradycardia Trigeminal neuralgia Annual physical exam WEEKS (dyspnea on exertion) Normal Pap smear Mammogram normal Normal colonoscopy COVID-19 GERD (gastroesophageal reflux disease) HTN (hypertension) HLD (hyperlipidemia) Hiatal hernia Surgical History (Updated 03/05/25 @ 12:50 by Cristela Barros MD) History of repair of hiatal hernia S/P Mohs surgery for basal cell carcinoma History of knee replacement Family History Father Heart attack Mother Dementia Social History Housing: House Patient Tobacco Use Status: Former Tobacco user (25 years ago) e-Cigarette/Vaping Use: Never Used service: No Current occupational status: employed Cognitive needs: No Hearing needs: No Vision needs: Yes Questionnaire Thrive Questionnaire Date Thrive assessed: 12/31/24 I am a: Patient What is your living situation today?: I have a steady place to live Within the past 12 months, did the food you bought not last and you didn't have the money to get more?: Never true Within the past 12 months, did you worry whether your food would run out before you got money to buy more?: Never true Do you have trouble paying for medicines?: No Do you have trouble getting transportation to medical appointments?: No Do you have trouble paying your heating and electricity bill?: No Do you have trouble taking care of your child, family member or friend?: No Do you have trouble with day-to-day activities such as bathing, preparing meals, shopping, managing finances, etc.?: No Are you currently unemployed and looking for a job?: No Are you interested in more education?: No Please select the resources that you would like help with: None Currently or been in a relationship where the following occur: No concerns reported THRIVE Score: 0 TEGAN-7 AMB Questionnaire TEGAN-7 Date TEGAN - 7 assessed: 07/16/24 Source: Developed by Drs. Masoud Uribe, Rosa Ellis, Ezio Jewell and colleagues, with an educational lisa from [employer]. Review of Systems Const All systems reviewed & are unremarkable except as noted in HPI and below Eyes Reports no additional complaints ENT Reports no additional complaints Card Reports no additional complaints Resp Reports no additional complaints GI Reports no additional complaints Physical exam (Primary Care) Vital Signs: Last Vital Signs Temp 98.3 F 03/05/25 12:07 Pulse 64 03/05/25 12:07 Resp 18 03/05/25 12:07 BP 118/70 03/05/25 12:07 Pulse Ox 95 03/05/25 12:07 Oxygen Delivery Method Room Air 03/05/25 12:07 BMI result Body Mass Index 26.7 Tobacco/Smoking Status: Tobacco use Status Tobacco use date assessed 03/05/25 03/05/25 12:16 Patient Tobacco Use Status Former Tobacco user (03/05/25 12:16 years ago) e-Cigarette/Vaping Use Never Used 03/05/25 12:08 Thrive Assessment: Date of Thrive Assessment Date Thrive assessed 12/31/24 03/05/25 12:08 Currently or been in a relationship where the following occur: No concerns reported Const General: no acute distress HENMT Head: Yes normal to inspection Eyes General: appearance normal, both eyes and all related structures Neck Neck: Yes supple Resp Effort & Inspection: normal respiratory effort Auscultation: clear to auscultation bilaterally Cardio Rhythm: regular rhythm Heart sounds: S1 normal heart sound present and S2 normal heart sound present GI Inspection: Yes normal to inspection Palpation (GI): Soft to palpation Percussion: Yes normal to percussion Auscultation: normal bowel sounds Coding Level of Care Code Est Pt Level 4 (71418) Diagnoses HLD (hyperlipidemia) E78.5 HTN (hypertension) I10 Osteoporosis M81.0 Assessment & Plan Assessment & Plan (1) HLD (hyperlipidemia): Code(s): E78.5 - Hyperlipidemia, unspecified Category: Medical Plan: cont statin (2) HTN (hypertension): Code(s): I10 - Essential (primary) hypertension Category: Medical Plan: Continue current medications (3) Osteoporosis: Comment: on Prolia since 2020 by application developer manager, DEXA by LAY OUT WORKER 2022, DEXA 12/2024 T score-1.4 fem neck, last Prolia 04/2025 Code(s): M81.0 - Age-related osteoporosis without current pathological fracture Category: Medical Plan: Patient will have her last Prolia injection in April. She will continue vitamin-D regular exercise and repeat DEXA in 2 years Orders: Orders Lipid Panel 4 Months E78.5 - Hyperlipidemia, unspecified, I10 - Essential (primary) hypertension, M81.0 - Age-related osteoporosis without current pathological fracture Comprehensive [place]. Panel Fast 4 Months E78.5 - Hyperlipidemia, unspecified, I10 - Essential (primary) hypertension, M81.0 - Age-related osteoporosis without current pathological fracture Complete Blood Count Auto Diff 4 Months E78.5 - Hyperlipidemia, unspecified, I10 - Essential (primary) hypertension, M81.0 - Age-related osteoporosis without current pathological fracture Medications: Discontinued esomeprazole magnesium (Nexium) Discontinued Reason: Doctor's Order 40 mg PO DAILY 180 caps 7RF
--- OUTSIDE RECORDS SUMMARY | 2025-03-05 12:45 | XMS_ITS | Clinical Summary ---
Author Organization [facility] 299 [facility] Address [address] [place] [address] Phone Care Team Providers Care Custom Leather Products Maker Name Role Phone Cristela Barros MD Primary Care Provider [phone] Allergies Active Allergy Reactions Criticality Noted Date [...] (2 of 2 - PPSV23) 09/07/2019 09/07/2018 Depression Screening 08/08/2024 Cholesterol Screening (Lipid Panel) 08/09/2024 Colorectal Cancer Screening: Colonoscopy 08/09/2024 Falls Risk Assessment 08/09/2024 Hepatitis C [...] complete this topic Insurance MEDICARE [facility] Care Teams Custom Leather Products Maker Relationship Specialty Start Date End Date Cristela Barros MD [address] [place] [phone] PCP - General Internal Medicine 08/09/24
--- OUTSIDE RECORDS SUMMARY | 2025-03-05 12:45 | XMS_ITS | Patient Health Record ---
Author Organization [facility] & An [facility] Address [address] [facility] [address] [place] [address] Care Team Providers Care Buckle Stringer Name Role Phone Cristela Barros Primary Care [...] WITH FOOD OR MILK NEEDED EVERY 6 HOURS; Duration: 30 Not-Taking Acetaminophen 500 MG 1 tablet as needed Orally every 4 hrs; Duration: 30 days 11/09/2021 Not-Taking hydrOXYzine HCl 25 MG 1 tablet as needed Orally every 8 hrs PRN itching/nausea; Duration: 10 days 11/09/2021 Not-Taking oxyCODONE HCl 5 MG 1 tablet as needed Orally every 4 hrs; Duration: 5 days 11/09/2021 Not-Taking Prolia 60 MG/ML [...] Problem Status W/U Status Risk Notes Problem Acquired hallux valgus (67445629) Hallux valgus (acquired), right foot (M20.11) Active confirmed Problem Deformity of right foot (finding) (490425655) 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
== END 2025-03-05 12:44 | disposition home or self-care (01) ==
LOC: HO.HMCC 11:36
PROVIDERS: PCP Internal Medicine; Visit Provider Internal Medicine
DX: E78.5 Hyperlipidemia, unspecified (principal); I10 Essential (primary) hypertension; M81.0 Age-related osteoporosis without current pathological fracture

== ENCOUNTER → 2025-03-05 11:35 | Outpatient (BNVA) | payer MEDICARE, OTHER, SELFPAY | PROVIDERS: PCP Internal Medicine; Visit Provider Internal Medicine | DX: E78.5 Hyperlipidemia, unspecified (principal); I10 Essential (primary) hypertension; M81.0 Age-related osteoporosis without current pathological fracture | CPT/HCPCS: 99212 ==

== ENCOUNTER 2025-07-02 08:20 | Outpatient (REF) | payer MEDICARE, OTHER, SELFPAY ==
--- OUTSIDE RECORDS SUMMARY | 2025-07-02 08:36 | XMS_ITS | Clinical Summary ---
Author Organization [facility] 299 [facility] Address [address] [place] [address] Phone Care Team Providers Care Survey Instrument Operator Name Role Phone Cristela Barros MD Primary Care Provider [phone] Allergies Active Allergy Reactions Criticality Noted Date [...] Last Done Comments Breast Cancer Screening 1950 Colorectal Cancer Screening: Colonoscopy 1950 Pneumococcal Vaccine: 50+ Years (2 of 2 - PCV20 or PCV21) 09/07/2019 09/07/2018 Depression Screening 08/08/2024 Cholesterol Screening (Lipid Panel) 08/09/2024 Falls Risk Assessment 08/09/2024 Hepatitis C Screening 08/09/2024 Medicare Annual Wellness Visit 08/09/2024 Osteoporosis Screening (Bone Density Screening) 08/09/2024 Social Influencers of Health Screening 08/09/2024 Hypertension/CHF/CAD Annual BMP Blood Test 10/17/2024 COVID-19 Vaccine ( season) 2025 05/21/2024, 08/10/2023, 06/24/2022, Additional history exists Influenza [...] complete this topic Insurance MEDICARE [facility] Care Teams Survey Instrument Operator Relationship Specialty Start Date End Date Cristela Barros MD [address] [facility] [place] [phone] PCP - General Internal Medicine 08/09/24
[2025-07-02 11:29] LABS: MANUAL DIFF FLAG NO
[2025-07-02 11:31] LABS: Hematocrit 37.8 % (37.0-47.0); Hemoglobin 12.5 g/dl (12.0-16.0); Imm Gran Abs Auto 0.01 X10*3/uL (0.00-0.03); Imm Gran Pct Auto 0.2 % (0.0-0.4); Lymphocytes Absolute Auto 2.5 X10*3/uL (1.2-4.9); Mean Corpuscular HGB Conc 33.1 g/dl (31.0-35.0); Mean Corpuscular Hemoglobin 30.4 pg (27.0-33.0); Mean Corpuscular Volume 92.0 fL (80.0-98.0); NRBC Abs Auto 0.000 X10*3/uL (0.0-0.012); NRBC Pct Auto 0.0 /100WBC (0.0-0.2); Platelet Count 230 X10*3/uL (160-400); Red Blood Count 4.11 X10*6/uL (4.20-5.50); White Blood Count 5.2 X10*3/uL (4.8-10.8)
[2025-07-02 11:35] LABS: Appearance Urine Clear; Glucose Urine UA Negative (Negative); PH 6.5 (5.0-9.0); Specific Gravity - Urine 1.025 (1.005-1.025); UMIC TRIGGER UA YES
[2025-07-02 12:11] LABS: Alanine Aminotransferase 16 U/L (0-31); Albumin Level 4.4 g/dL (3.5-5.0); Alkaline Phosphatase 70 U/L (39-117); Anion Gap 9 (12-20); Aspartate Amino Transferase 27 U/L (5-31); Blood Urea Nitrogen 16 mg/dL (9-16); Calcium 8.8 mg/dL (8.4-10.2); Carbon Dioxide 28 mmol/L (22-29); Chloride 108 mmol/L (96-108); Cholesterol 197 mg/dL (<200); Estimated Glomerular Filt Rate > 60; HDL Cholesterol 71 mg/dL (>40); Potassium 4.2 mmol/L (3.3-5.1); Sodium 141 mmol/L (135-145); Total Protein 6.8 g/dL (6.5-8.0); Triglycerides 96 mg/dL (<150)
== END 2025-07-02 08:21 | disposition home or self-care (01) ==
LOC: HO.WFDLDS 08:20
PROVIDERS: Visit Provider Internal Medicine
DX: M81.0 Age-related osteoporosis without current pathological fracture (principal); I10 Essential (primary) hypertension; E78.5 Hyperlipidemia, unspecified; R33.9 Retention of urine, unspecified
CPT/HCPCS: 36415; 80053; 80061; 81001; 85025

== ENCOUNTER 2025-07-08 09:06 | Outpatient (AMB) | payer MEDICARE, OTHER, SELFPAY ==
[2025-07-08 09:15] VITALS: BP 122/76; PULSE 85; RESP 17; TEMP 36.6; O2SAT 96; BMI 27.1
--- NOTE | 2025-07-08 09:15 | MHC.PC.OV ---
Vital Signs 07/08/25 09:15 Height 5 ft 2 in Weight 148 lb BMI 27.1 BP 122/76 Blood Pressure Location Rt brachial Position Sitting Respiration 17 Pulse 85 Pulse Source Pulse Oximeter Temp 97.9 F Temp Source Oral Pulse Oximetry (%) 96 Oxygen Delivery Method Room Air Intake Visit Reasons: 4m follow up Intake Note: Pt is here today for 4 months follow up visit. Allergies lisinopril Adverse Reaction (Intermediate, Verified 07/08/25 09:23) cough, hair falling out SEASONAL ALLERGIES Allergy (Unknown, Uncoded 07/08/25 09:23) SNEEZING, RUNNY EYES Medication List - Last Reconciled 07/08/25 by Cristela Barros MD amlodipine 5 mg PO DAILY amoxicillin 2,000 mg (4 x 500 mg) PO ONCE atenolol 25 mg PO DAILY calcium carbonate-vitamin D3 600 mg-12.5 mcg (500 unit) (Calcium with Vit D3) caps PO fluoxetine 20 mg PO DAILY olmesartan 20 mg PO DAILY pantoprazole 40 mg PO DAILY simvastatin 20 mg PO DAILY Tobacco use date assessed: 03/05/25 Fall risk assessment: No Falls in past year Last assessed Fall Risk: 07/08/25 Dental Screening Dental Screen Date: 01/02/25 HPI 4m follow up HPI Details Patient presents for the follow-up on hypertension hyperlipidemia chronic GERD stable on current medications. [facility] Medical History Osteoporosis Bunion of great toe Bradycardia Trigeminal neuralgia Annual physical exam WEEKS (dyspnea on exertion) Normal Pap smear Mammogram normal Normal colonoscopy COVID-19 GERD (gastroesophageal reflux disease) HTN (hypertension) HLD (hyperlipidemia) Hiatal hernia Surgical History History of repair of hiatal hernia S/P Mohs surgery for basal cell carcinoma History of knee replacement Family History Father Heart attack Mother Dementia Social History Housing: House Patient Tobacco Use Status: Former Tobacco user (25 years ago) e-Cigarette/Vaping Use: Never Used service: No Current occupational status: employed Cognitive needs: No Hearing needs: No Vision needs: Yes Questionnaire Thrive Questionnaire Date Thrive assessed: 12/31/24 I am a: Patient What is your living situation today?: I have a steady place to live Within the past 12 months, did the food you bought not last and you didn't have the money to get more?: Never true Within the past 12 months, did you worry whether your food would run out before you got money to buy more?: Never true Do you have trouble paying for medicines?: No Do you have trouble getting transportation to medical appointments?: No Do you have trouble paying your heating and electricity bill?: No Do you have trouble taking care of your child, family member or friend?: No Do you have trouble with day-to-day activities such as bathing, preparing meals, shopping, managing finances, etc.?: No Are you currently unemployed and looking for a job?: No Are you interested in more education?: No Please select the resources that you would like help with: None Currently or been in a relationship where the following occur: No concerns reported THRIVE Score: 0 TEGAN-7 AMB Questionnaire TEGAN-7 Date TEGAN - 7 assessed: 07/16/24 Source: Developed by Drs. Masoud Uribe, Rosa Ellis, Ezio Jewell and colleagues, with an educational lisa from [employer]. Review of Systems Const All systems reviewed & are unremarkable except as noted in HPI and below Eyes Reports no additional complaints ENT Reports no additional complaints Card Reports no additional complaints Resp Reports no additional complaints GI Reports no additional complaints Reports no additional complaints Physical exam (Primary Care) Vital Signs: Last Vital Signs Temp 97.9 F 07/08/25 09:15 Pulse 85 07/08/25 09:15 Resp 17 07/08/25 09:15 BP 122/76 07/08/25 09:15 Pulse Ox 96 07/08/25 09:15 Oxygen Delivery Method Room Air 07/08/25 09:15 BMI result Body Mass Index 27.1 Tobacco/Smoking Status: Tobacco use Status Tobacco use date assessed 03/05/25 07/08/25 09:15 Patient Tobacco Use Status Former Tobacco user (07/08/25 09:15 years ago) e-Cigarette/Vaping Use Never Used 07/08/25 09:15 Thrive Assessment: Date of Thrive Assessment Date Thrive assessed 12/31/24 07/08/25 09:15 Currently or been in a relationship where the following occur: No concerns reported Const General: no acute distress HENMT Head: Yes normal to inspection Neck Neck: Yes supple Resp Effort & Inspection: normal respiratory effort Auscultation: clear to auscultation bilaterally Cardio Rhythm: regular rhythm Heart sounds: S1 normal heart sound present and S2 normal heart sound present GI Inspection: Yes normal to inspection Coding Level of Care Code Est Pt Level 4 (41248) Diagnoses Osteoporosis M81.0 HTN (hypertension) I10 HLD (hyperlipidemia) E78.5 History of repair of hiatal hernia Z98.890; Z87.19 Assessment & Plan Assessment & Plan (1) Osteoporosis: Comment: on Prolia since 2020 by commodity merchant, DEXA by HEALTH ADVISOR 2022, DEXA 12/2024 T score-1.4 fem neck, last Prolia 04/2025 Code(s): M81.0 - Age-related osteoporosis without current pathological fracture Category: Medical Plan: Patient will discuss further treatment for osteopenia with her reimbursement specialist who initially prescribed Prolia. (2) HTN (hypertension): Code(s): I10 - Essential (primary) hypertension Category: Medical Plan: Continue current medications (3) HLD (hyperlipidemia): Code(s): E78.5 - Hyperlipidemia, unspecified Category: Medical Plan: Continue statin (4) History of repair of hiatal hernia: Comment: robotic assisted paraesophageal hernia repair Dr. Howe 12/2024 [facility] Code(s): Z98.890 - Other specified postprocedural states; Z87.19 - Personal history of other diseases of the digestive system Category: Surgical Plan: Continue PPI PRN, Orders: Orders Lipid Panel 5 Months E55.9 - Vitamin D deficiency, unspecified, E78.5 - Hyperlipidemia, unspecified, I10 - Essential (primary) hypertension Vitamin D 25-OH Total 5 Months E55.9 - Vitamin D deficiency, unspecified, E78.5 - Hyperlipidemia, unspecified, I10 - Essential (primary) hypertension Comprehensive [place]. Panel Fast 5 Months E55.9 - Vitamin D deficiency, unspecified, E78.5 - Hyperlipidemia, unspecified, I10 - Essential (primary) hypertension Complete Blood Count Auto Diff 5 Months E55.9 - Vitamin D deficiency, unspecified, E78.5 - Hyperlipidemia, unspecified, I10 - Essential (primary) hypertension TSH reflex Free T4 5 Months E55.9 - Vitamin D deficiency, unspecified, E78.5 - Hyperlipidemia, unspecified, I10 - Essential (primary) hypertension Medications: New omeprazole magnesium 20 mg PO DAILY 90 caps 2RF fluocinonide 0.05% 1 appl topical BEDTIME 60 mL 0RF Scribe Plan - Not visible on output:
--- OUTSIDE RECORDS SUMMARY | 2025-07-08 10:38 | XMS_ITS | Clinical Summary ---
Author Organization [facility] 299 [facility] Address [address] [place] [address] Phone Care Team Providers Care Policyholder Information Clerk Name Role Phone Cristela Barros MD Primary Care Provider [phone] Allergies Active Allergy Reactions Criticality Noted Date [...] age to complete this topic Insurance MEDICARE [facility] Care Teams Policyholder Information Clerk Relationship Specialty Start Date End Date Cristela Barros MD [address] [facility] [place] [phone] PCP - General Internal Medicine 08/09/24
== END 2025-07-08 10:49 | disposition home or self-care (01) ==
LOC: HO.HMCC 09:07
PROVIDERS: PCP Internal Medicine; Visit Provider Internal Medicine
DX: M81.0 Age-related osteoporosis without current pathological fracture (principal); I10 Essential (primary) hypertension; E78.5 Hyperlipidemia, unspecified; Z98.890 Other specified postprocedural states; Z87.19 Personal history of other diseases of the digestive system

== ENCOUNTER → 2025-07-08 09:06 | Outpatient (BNVA) | payer MEDICARE, OTHER, SELFPAY | PROVIDERS: PCP Internal Medicine; Visit Provider Internal Medicine | DX: M81.0 Age-related osteoporosis without current pathological fracture (principal); I10 Essential (primary) hypertension; E78.5 Hyperlipidemia, unspecified; Z87.19 Personal history of other diseases of the digestive system; Z98.890 Other specified postprocedural states | CPT/HCPCS: 99212 ==